=== PATIENT | female | born 1960 | race Caucasian/White ===

== ENCOUNTER 2016-08-22 13:33 | Inpatient (IN) | payer MEDICARE, MEDICAID ==
[2016-08-22] MEDS ORDERED: Morphine 2 MG/ML Syringe IVPUSH PRN (13:49)
[2016-08-22] MEDS: Sodium Chloride 0.9% 1,000 ML IV SCH (14:08)
[2016-08-22] MEDS ORDERED: Iopamidol 612 MG/ML 100 ML Bottle IV PRN (14:36)
[2016-08-22] MEDS ORDERED: Sodium Chloride 0.9% 10 ML Syringe FLUSH PRN (14:36)
[2016-08-22] MEDS ORDERED: Acetaminophen 325 MG Tab PO STA (15:01)
[2016-08-22] MEDS ORDERED: Pantoprazole 40 MG Vial IVPUSH ONE (16:34)
[2016-08-22] MEDS ORDERED: HYDROmorphone/Normal Saline 15 MG/30 ML PCA IV PRN (18:38)
[2016-08-22] MEDS ORDERED: Naloxone 0.4 MG/ML SDV IVPUSH PRN (18:38)
[2016-08-22] MEDS: Acetaminophen 325 MG Tab PO PRN (20:18)
[2016-08-22] MEDS: Metoclopramide 10 MG/2 ML SDV IV SCH (21:03)
[2016-08-22] MEDS: Ondansetron 4 MG/2 ML SDV IVPUSH PRN (21:03)
[2016-08-23] MEDS: Ondansetron 4 MG/2 ML SDV IVPUSH PRN ×2 (02:10→06:40)
[2016-08-23] MEDS: Metoclopramide 10 MG/2 ML SDV IV SCH ×4 (02:15→20:05)
[2016-08-23] MEDS ORDERED: Naloxone 0.4 MG/ML SDV IV PRN (07:23)
[2016-08-23] MEDS: Meperidine 300 MG/30 ML PCA Vial IV PRN (07:56)
[2016-08-23] MEDS ORDERED: Potassium Chloride 40 MEQ in Premix Bag 1 BAG IV ONE (08:45)
--- NOTE | 2016-08-23 08:55 | EDM.PDOC ---
ED HPI GENERAL MEDICAL PROBLEM - General Chief Complaint: General Stated Complaint: FEELS LIKE PASSING OUT, PALE Time Seen by Provider: 08/22/16 15:00 Source of Information: Reports: Patient, Family, RN notes reviewed History Limitations: Reports: No limitations - History of Present Illness INITIAL COMMENTS - FREE TEXT/NARRATIVE: 55-year-old female brought to the emergency room by family. Complaints of epigastric pain. Has had this intermittently since EGD accomplished by Fernando Laughlin in May with finding of large gastric bezoar. This a.m. had small amount to eat and noticed immediate epigastric pain with nausea but no vomiting. [place] like passing out. Took a shower with no relief of symptoms and continues to describe the gastric pain without radiation. Denies fever, sweats , or chills. Notes no diarrhea. Appetite has been decreased since finding in May. Weight reportedly stable. Alcohol none Middle Abdomen Pain Score (Numeric/FACES): 4 - Related Data Allergies Allergy/AdvReac Type Severity Reaction Status Date / Time metaxalone Allergy Cannot Verified 08/22/16 13:43 Remember ether AdvReac Nausea Verified 08/22/16 13:43 metronidazole AdvReac Tachycardia Verified 08/22/16 13:43 Home Meds: Home Meds Levothyroxine [Synthroid] 50 mcg PO DAILY 09/28/13 [History] Aspirin [Adult Low Dose Aspirin EC] 81 mg PO DAILY 01/24/14 [History] Cyanocobalamin (Vitamin B-12) [B-12] 500 mg PO DAILY 01/24/14 [History] Montelukast Sodium 10 mg PO BEDTIME 01/24/14 [History] Biotin 5,000 mcg PO DAILY 06/18/14 [History] Esomeprazole [NexIUM] 40 mg PO ACBREAKFAST 08/08/15 [History] Fluticasone Propionate [Flonase] 2 spray NS DAILY 08/08/15 [History] Losartan [Cozaar] 100 mg PO DAILY 03/27/16 [History] Cyclobenzaprine [Flexeril] 10 mg PO TID PRN 06/15/16 [History] Hydrochlorothiazide 25 mg PO DAILY 06/15/16 [History] Metoprolol Succinate [Toprol XL] 50 mg PO DAILY 06/15/16 [History] Pyridoxine HCl [Vitamin B-6] 100 mg PO DAILY 06/15/16 [History] [place]-3/DHA/Epa/Fish Oil [Fish Oil 500 mg Softgel] 1,200 mg PO DAILY 06/17/16 [ History] Past Medical History HEENT History: Reports: Impaired vision Cardiovascular History: Reports: Hypertension Gastrointestinal History: Reports: Bowel obstruction, GERD, Hiatal hernia Genitourinary History: Reports: UTI, recurrent 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: 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, Musculoskeletal History: Reports: Back pain, chronic Neurological History: Reports: None Psychiatric History: Reports: Anxiety Endocrine/Metabolic History: Reports: Hypothyroidism Dermatologic History: Reports: None - Infectious Disease History Infectious Disease History: Reports: None - Past Surgical History Head Surgeries/Procedures: Reports: None HEENT Surgical History: Reports: None Cardiovascular Surgical History: Reports: None GI Surgical History: Reports: Colonoscopy, EGD, Zeb fundoplication Female Surgical History: Reports: Hysterectomy, Oophorectomy, Tubal ligation Endocrine Surgical History: Reports: Thyroidectomy Other Endocrine Surgeries/Procedures: partial Neurological Surgical History: Reports: Spinal fusion, Other (see below) Other Neurological Surgeries/Procedures: L4-5 L5-S1 fusion Musculoskeletal Surgical History: Reports: Carpal tunnel Dermatological Surgical History: Reports: Other (see below) Social & Family History - Family History Family Medical History: Noncontributory : Reports: None Musculoskeletal: Reports: None - Tobacco Use Smoking Status *Q: Never Smoker Used Tobacco, but Quit: Yes Month Tobacco Last Used: 06/1984 Second Hand Smoke Exposure: No - Caffeine Use Caffeine Use: Reports: Coffee - Alcohol Use Days Per Week of Alcohol Use: 1 Number of Drinks Per Day: 0 Total Drinks Per Week: 0 - Recreational Drug Use Recreational Drug Use: No ED ROS GENERAL - Review of Systems Review Of Systems: See Below Constitutional: Reports: diaphoresis, other (near syncope) HEENT: Reports: No symptoms Respiratory: Reports: no symptoms Cardiovascular: Reports: No symptoms Endocrine: Reports: no symptoms GI/Abdominal: Reports: Abdominal pain, Anorexia : Reports: no symptoms Musculoskeletal: Reports: no symptoms Skin: Reports: pallor Neurological: Reports: no symptoms Psychiatric: Reports: No symptoms Hematologic/Lymphatic: Reports: no symptoms Immunologic: Reports: no symptoms ED EXAM, GENERAL - Physical Exam Exam: See Below Exam Limited By: No limitations General Appearance: alert, WD/WN, anxious Eye Exam: bilateral eye: EOMI, normal inspection Ears: normal external exam, normal canal, hearing grossly normal, normal TMs Nose: normal inspection Throat/Mouth: Normal inspection, Normal lips, Normal gums, Normal oropharynx, Normal voice, No airway compromise Head: atraumatic, normocephalic Neck: normal inspection, supple, non-tender, full range of motion Respiratory/Chest: no respiratory distress, lungs clear, normal breath sounds Cardiovascular: regular rate, rhythm Peripheral Pulses: 1+: radial (L), radial (R), 2+: carotid (L), carotid (R) GI/Abdominal: no organomegaly, no mass, tender (epigastric area) Back Exam: normal inspection Extremities: normal inspection Neurological: alert, oriented, CN II-XII intact, normal cognition Skin Exam: Dry, Pallor Lymphatic: no adenopathy Course - Vital Signs Text/Narrative:: Patient treated with normal saline fluid rehydration Reviewed CT scan abdomen and pelvis which showed a hemangioma in liver with fluid filled bowel but no evidence of obstruction. No evidence of free air on flat and upright abdomen. Lab with normal cbc, lipase, renal function, and liver function but slightly low calcium. given protonix iv continues with epigastric pain and feels like she wants to pass out. Discussed with Dr. Laughlin in surgery and question whether we have gastric outlet obstruction. Will admit to Dr. Laughlin's service Last Recorded V/S: Last Vital Signs Temp 98.6 F 08/23/16 07:51 Pulse 70 08/23/16 07:51 Resp 18 08/23/16 07:51 BP 111/71 08/23/16 07:51 Pulse Ox 95 08/23/16 07:51 - Orders/Labs/Meds Orders: Active Orders 24 hr Category Date Time Status Abdomen 2V AP Flat Upright [CR] Urgent Exams 08/22/16 13:47 Taken Abdomen Comp [US] Stat Exams 08/22/16 17:00 Taken Abdomen Pelvis w Cont [CT] Urgent Exams 08/22/16 13:48 Taken CULTURE BLOOD [BC] Stat Lab 08/22/16 15:10 Received CULTURE BLOOD [BC] Stat Lab 08/22/16 15:20 Received CULTURE URINE [RM] Stat Lab 08/22/16 15:47 Received Iopamidol [Isovue-300 (61%)] Med 08/22/16 14:36 Active 100 ml IV . DIRECTED PRN Morphine Med 08/22/16 13:49 Active 1 mg IVPUSH Q1H PRN Sodium Chloride 0.9% [Normal Saline] 1,000 ml Med 08/22/16 14:00 Active IV ASDIRECTED Sodium Chloride 0.9% [Saline Flush] Med 08/22/16 14:36 Active 10 ml FLUSH ONETIME PRN Medication Orders Acetaminophen (Tylenol) 650 mg PO Q4H PRN PRN Reason: fever/pain Last Admin: 08/22/16 20:18 Dose: 650 mg Sodium Chloride (Normal Saline) 1,000 mls @ 150 mls/hr IV ASDIRECTED LUC Last Admin: 08/22/16 14:08 Dose: 150 mls/hr Calcium Gluconate 2 gm/ Sodium (Chloride) 120 mls @ 100 mls/hr IV ONETIME ONE Stop: 08/23/16 09:55 Magnesium Sulfate 2 gm/ Premix 50 mls @ 25 mls/hr IV ONETIME ONE Stop: 08/23/16 10:59 Potassium Chloride 40 meq/ (Premix) 100 mls @ 25 mls/hr IV ONETIME ONE Stop: 08/23/16 12:44 Iopamidol (Isovue-300 (61%)) 100 ml IV . DIRECTED PRN PRN Reason: RADIOLOGY EXAM Stop: 08/23/16 14:37 Last Admin: 08/22/16 14:44 Dose: 100 ml Meperidine HCl (Demerol [employer] Principal 300 Mg In 30 Ml) 0 mg IV ASDIRECTED PRN; Protocol PRN Reason: PAIN Last Admin: 08/23/16 07:56 Dose: 300 mg Metoclopramide HCl (Reglan) 10 mg IV Q6H [facility] Last Admin: 08/23/16 08:40 Dose: 10 mg Admin: 08/23/16 02:15 Dose: 10 mg Admin: 08/22/16 21:03 Dose: 10 mg Morphine Sulfate (Morphine) 1 mg IVPUSH Q1H PRN PRN Reason: Pain Naloxone HCl (Narcan) 0.1 mg IV ASDIRECTED PRN PRN Reason: RESP Ondansetron HCl (Zofran) 4 mg IVPUSH Q4H PRN PRN Reason: Nausea/Vomiting Last Admin: 08/23/16 06:40 Dose: 4 mg Admin: 03/06/17 02:10 Dose: 4 mg Admin: 08/22/16 21:03 Dose: 4 mg Sodium Chloride (Saline Flush) 10 ml FLUSH ONETIME PRN PRN Reason: per radiology protocol Last Admin: 08/22/16 14:44 Dose: 10 ml Labs: Laboratory Tests 08/22/16 08/22/16 08/22/16 Range/Units 13:59 13:59 13:59 WBC 6.3 (4.5-11.0) K/uL RBC 4.76 (3.30-5.50) M/uL Hgb 13.4 (12.0-15.0) g/dL Hct 40.5 (36.0-48.0) % MCV 85 (80-98) fL MCH 28 (27-31) pg MCHC 33 (32-36) % Plt Count 186 (150-400) K/uL Neut % (Auto) 85 H (36-66) % Lymph % (Auto) 10 L (24-44) % [place] % (Auto) 4 (2-6) % Eos % (Auto) 1 L (2-4) % Baso % (Auto) 0 (0-1) % Sodium 139 L (140-148) mmol/L Potassium 4.2 (3.6-5.2) mmol/L Chloride 103 (100-108) mmol/L Carbon Dioxide 26 (21-32) mmol/L Anion Gap 14.2 H (5.0-14.0) mmol/L BUN 24 H (7-18) mg/dL Creatinine 1.1 H (0.6-1.0) mg/dL Est Cr Clr Drug Dosing 42.58 mL/min Estimated GFR (MDRD) 51 L (>60) Glucose 135 H (74-106) mg/dL Lactic Acid 1.8 (0.4-2.0) mmol/L Calcium 8.1 L (8.5-10.1) mg/dL Total Bilirubin 0.5 D (0.2-1.0) mg/dL AST 33 (15-37) U/L ALT 35 (12-78) U/L Alkaline Phosphatase 63 (46-116) U/L Troponin I < 0.017 (0.000-0.056) ng/mL Total Protein 7.3 (6.4-8.2) g/dL Albumin 3.8 (3.4-5.0) g/dL Globulin 3.5 (2.3-3.5) g/dL Albumin/Globulin Ratio 1.1 L (1.2-2.2) Amylase 38 (25-115) U/L Lipase 159 (73-393) U/L Urine Color Urine Appearance Urine pH (4.5-8.0) Ur Specific [place] (1.008-1.030) Urine Protein (NEGATIVE) mg/dL Urine Glucose (UA) (NEGATIVE) mg/dL Urine Ketones (NEGATIVE) mg/dL Urine Occult Blood (NEGATIVE) Urine Nitrite (NEGATIVE) Urine Bilirubin (NEGATIVE) Urine Urobilinogen (NORMAL) mg/dL Ur Leukocyte Esterase (NEGATIVE) Urine RBC (0-5) Urine WBC (0-5) Ur Epithelial Cells Amorphous Sediment Urine Bacteria Urine Mucus Urine Other 08/22/16 Range/Units 15:47 WBC (4.5-11.0) K/uL RBC (3.30-5.50) M/uL Hgb (12.0-15.0) g/dL Hct (36.0-48.0) % MCV (80-98) fL MCH (27-31) pg MCHC (32-36) % Plt Count (150-400) K/uL Neut % (Auto) (36-66) % Lymph % (Auto) (24-44) % [place] % (Auto) (2-6) % Eos % (Auto) (2-4) % Baso % (Auto) (0-1) % Sodium (140-148) mmol/L Potassium (3.6-5.2) mmol/L Chloride (100-108) mmol/L Carbon Dioxide (21-32) mmol/L Anion Gap (5.0-14.0) mmol/L BUN (7-18) mg/dL Creatinine (0.6-1.0) mg/dL Est Cr Clr Drug Dosing mL/min Estimated GFR (MDRD) (>60) Glucose (74-106) mg/dL Lactic Acid (0.4-2.0) mmol/L Calcium (8.5-10.1) mg/dL Total Bilirubin (0.2-1.0) mg/dL AST (15-37) U/L ALT (12-78) U/L Alkaline Phosphatase (46-116) U/L Troponin I (0.000-0.056) ng/mL Total Protein (6.4-8.2) g/dL Albumin (3.4-5.0) g/dL Globulin (2.3-3.5) g/dL Albumin/Globulin Ratio (1.2-2.2) Amylase (25-115) U/L Lipase (73-393) U/L Urine Color Yellow Urine Appearance Slightly cloudy Urine pH 5.0 (4.5-8.0) Ur Specific [place] 1.015 (1.008-1.030) Urine Protein Negative (NEGATIVE) mg/dL Urine Glucose (UA) Normal (NEGATIVE) mg/dL Urine Ketones Negative (NEGATIVE) mg/dL Urine Occult Blood Negative (NEGATIVE) Urine Nitrite Negative (NEGATIVE) Urine Bilirubin Negative (NEGATIVE) Urine Urobilinogen Normal (NORMAL) mg/dL Ur Leukocyte Esterase Small (NEGATIVE) Urine RBC Not seen (0-5) Urine WBC 5-10 H (0-5) Ur Epithelial Cells Few Amorphous Sediment Not seen Urine Bacteria Many Urine Mucus Few Urine Other Meds: Medications Generic Name Dose Route Start Last Admin Trade Name Freq PRN Reason Stop Dose Admin Acetaminophen 650 mg 08/22/16 19:48 08/22/16 20:18 Tylenol PO 650 mg Q4H PRN Administration fever/pain Sodium Chloride 1,000 mls @ 150 mls/hr 08/22/16 14:00 08/22/16 14:08 Normal Saline IV 150 mls/hr ASDIRECTED LUC Administration Calcium Gluconate 2 gm/ Sodium 120 mls @ 100 mls/hr 08/23/16 08:44 Chloride IV 08/23/16 09:55 ONETIME ONE Magnesium Sulfate 2 gm/ Premix 50 mls @ 25 mls/hr 08/23/16 09:00 IV 08/23/16 10:59 ONETIME ONE Potassium Chloride 40 meq/ 100 mls @ 25 mls/hr 08/23/16 08:45 Premix IV 08/23/16 12:44 ONETIME ONE Iopamidol 100 ml 08/22/16 14:36 08/22/16 14:44 Isovue-300 (61%) IV 08/23/16 14:37 100 ml . DIRECTED PRN Administration RADIOLOGY EXAM Meperidine HCl 0 mg 08/23/16 07:23 08/23/16 07:56 Demerol [employer] 300 Mg In 30 Ml IV 300 mg ASDIRECTED PRN Administration PAIN Protocol Metoclopramide HCl 10 mg 08/22/16 20:30 08/23/16 08:40 Reglan IV 10 mg Q6H LUC Administration Morphine Sulfate 1 mg 08/22/16 13:49 Morphine IVPUSH Q1H PRN Pain Naloxone HCl 0.1 mg 08/23/16 07:23 Narcan IV ASDIRECTED PRN RESP Ondansetron HCl 4 mg 08/22/16 20:20 08/23/16 06:40 Zofran IVPUSH 4 mg Q4H PRN Administration Nausea/Vomiting Sodium Chloride 10 ml 08/22/16 14:36 08/22/16 14:44 Saline Flush FLUSH 10 ml ONETIME PRN Administration per radiology protocol Discontinued Medications Generic Name Dose Route Start Last Admin Trade Name Freq PRN Reason Stop Dose Admin Acetaminophen 650 mg 08/22/16 15:01 08/22/16 15:04 Tylenol PO 08/22/16 15:02 650 mg NOW STA Administration Hydromorphone HCl 0 mg 08/22/16 18:38 08/22/16 19:20 Dilaudid [employer] 15 Mg In Ns 30 Ml IV 15 mg ASDIRECTED PRN Administration Pain Protocol Sodium Chloride 70 mls @ 3 mls/sec 08/22/16 14:45 08/22/16 14:44 Normal Saline IV 3 mls/sec ASDIRECTED LUC Administration Pantoprazole Sodium 40 mg 08/22/16 16:34 08/22/16 16:41 Protonix Iv IVPUSH 08/22/16 16:35 40 mg ONETIME ONE Administration Departure - Departure Time of Disposition: 09:04 Disposition: [facility] Condition: fair Clinical Impression: Epigastric pain - My Orders Last 24 Hours: My Active Orders 08/22/16 13:47 Abdomen 2V AP Flat Upright [CR] Urgent 08/22/16 13:48 Abdomen Pelvis w Cont [CT] Urgent 08/22/16 13:49 Morphine 1 mg IVPUSH Q1H PRN 08/22/16 14:00 Sodium Chloride 0.9% [Normal Saline] 1,000 ml IV ASDIRECTED 08/22/16 14:36 Iopamidol [Isovue-300 (61%)] 100 ml IV . DIRECTED PRN Sodium Chloride 0.9% [Saline Flush] 10 ml FLUSH ONETIME PRN 08/22/16 15:10 CULTURE BLOOD [BC] Stat 08/22/16 15:20 CULTURE BLOOD [BC] Stat 08/22/16 15:47 CULTURE URINE [RM] Stat 08/22/16 17:00 Abdomen Comp [US] Stat - Assessment/Plan Last 24 Hours: My Active Orders 08/22/16 13:47 Abdomen 2V AP Flat Upright [CR] Urgent 08/22/16 13:48 Abdomen Pelvis w Cont [CT] Urgent 08/22/16 13:49 Morphine 1 mg IVPUSH Q1H PRN 08/22/16 14:00 Sodium Chloride 0.9% [Normal Saline] 1,000 ml IV ASDIRECTED 08/22/16 14:36 Iopamidol [Isovue-300 (61%)] 100 ml IV . DIRECTED PRN Sodium Chloride 0.9% [Saline Flush] 10 ml FLUSH ONETIME PRN 08/22/16 15:10 CULTURE BLOOD [BC] Stat 08/22/16 15:20 CULTURE BLOOD [BC] Stat 08/22/16 15:47 CULTURE URINE [RM] Stat 08/22/16 17:00 Abdomen Comp [US] Stat
[2016-08-23] MEDS ORDERED: Magnesium Sulfate/Water 2 GM in Premix Bag 1 BAG IV ONE (09:00)
--- NOTE | 2016-08-23 09:04 | PCM.HP ---
H&P History of Present Illness - General Date of Service: 08/23/16 Source of Information: Patient History Limitations: Reports: No limitations - History of Present Illness Initial Comments - Free Text/Narative: Rosalva states she had sudden onset of mid epigastric abdominal pain that started yesterday morning while she was eating a "wrap from the DQ". She said she ate about 1/2 of it and had to stop eating. No associated signs and symptoms. She took a hot shower thinking that would help but she states the pain was so severe she almost passed out. There was no radiation of pain but does state she feels like her right upper back needs to be supported by pillows. Last BM was either 08/16 or 08/17/16. Normally she has BMS every 4 days. Has had similar episodes like this before but not as severe. She reports having a bezoar diagnosed by an EGD done by Kanu Laughlin MD in May,. Location: Reports: abdomen (mid epigastric ) Quality: Reports: Pressure, Stabbing, Throbbing Improves with: Reports: Medication Context: Reports: sick contact Associated Symptoms: Reports: other (nausea but no vomiting) Middle Abdomen Pain Score (Numeric/FACES): 4 - Related Data Allergies/Adverse Reactions: Allergies Allergy/AdvReac Type Severity Reaction Status Date / Time metaxalone Allergy Cannot Verified 08/22/16 13:43 Remember ether AdvReac Nausea Verified 08/22/16 13:43 metronidazole AdvReac Tachycardia Verified 08/22/16 13:43 Home Medications: Home Meds Levothyroxine [Synthroid] 50 mcg PO DAILY 09/28/13 [History] Aspirin [Adult Low Dose Aspirin EC] 81 mg PO DAILY 01/24/14 [History] Cyanocobalamin (Vitamin B-12) [B-12] 500 mg PO DAILY 01/24/14 [History] Montelukast Sodium 10 mg PO BEDTIME 01/24/14 [History] Biotin 5,000 mcg PO DAILY 06/18/14 [History] Esomeprazole [NexIUM] 40 mg PO ACBREAKFAST 08/08/15 [History] Fluticasone Propionate [Flonase] 2 spray NS DAILY 08/08/15 [History] Losartan [Cozaar] 100 mg PO DAILY 03/27/16 [History] Cyclobenzaprine [Flexeril] 10 mg PO TID PRN 06/15/16 [History] Hydrochlorothiazide 25 mg PO DAILY 06/15/16 [History] Metoprolol Succinate [Toprol XL] 50 mg PO DAILY 06/15/16 [History] Pyridoxine HCl [Vitamin B-6] 100 mg PO DAILY 06/15/16 [History] [place]-3/DHA/Epa/Fish Oil [Fish Oil 500 mg Softgel] 1,200 mg PO DAILY 06/17/16 [ History] Past Medical History HEENT History: Reports: Impaired vision Cardiovascular History: Reports: Hypertension Gastrointestinal History: Reports: Bowel obstruction, GERD, Hiatal hernia Genitourinary History: Reports: UTI, recurrent 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, Musculoskeletal History: Reports: Back pain, chronic Neurological History: Reports: None Psychiatric History: Reports: Anxiety Endocrine/Metabolic History: Reports: Hypothyroidism Dermatologic History: Reports: None - Infectious Disease History Infectious Disease History: Reports: None - Past Surgical History Head Surgeries/Procedures: Reports: None HEENT Surgical History: Reports: None Cardiovascular Surgical History: Reports: None GI Surgical History: Reports: Colonoscopy, EGD, Zeb fundoplication Female Surgical History: Reports: Hysterectomy, Oophorectomy, Tubal ligation Endocrine Surgical History: Reports: Thyroidectomy Other Endocrine Surgeries/Procedures: partial Neurological Surgical History: Reports: Spinal fusion, Other (see below) Other Neurological Surgeries/Procedures: L4-5 L5-S1 fusion Musculoskeletal Surgical History: Reports: Carpal tunnel Dermatological Surgical History: Reports: Other (see below) Social & Family History - Family History Family Medical History: Noncontributory : Reports: None Musculoskeletal: Reports: None - Tobacco Use Smoking Status *Q: Never Smoker Used Tobacco, but Quit: Yes Month Tobacco Last Used: 06/1984 Second Hand Smoke Exposure: No - Caffeine Use Caffeine Use: Reports: Coffee - Alcohol Use Days Per Week of Alcohol Use: 1 Number of Drinks Per Day: 0 Total Drinks Per Week: 0 - Recreational Drug Use Recreational Drug Use: No H&P Review of Systems - Review of Systems: Review Of Systems: See Below General: Reports: fever, weakness, fatigue HEENT: Reports: no symptoms Pulmonary: Reports: no symptoms Cardiovascular: Reports: no symptoms Gastrointestinal: Reports: Abdominal pain, Constipation, Nausea Genitourinary: Reports: no symptoms Musculoskeletal: Reports: no symptoms, back pain (right upper.) Skin: Reports: no symptoms Psychiatric: Reports: no symptoms Neurological: Reports: no symptoms Hematologic/Lymphatic: Reports: no symptoms Immunologic: Reports: no symptoms Exam - Exam Exam: See Below - Vital Signs Vital Signs: Last Vital Signs Temp 98.6 F 08/23/16 07:51 Pulse 70 08/23/16 07:51 Resp 18 08/23/16 07:51 BP 111/71 08/23/16 07:51 Pulse Ox 95 08/23/16 07:51 Weight: 158 lb 11.2 oz - Exam Quality Assessment: DVT prophylaxis General: alert, oriented, moderate distress HEENT: PERRLA, Conjunctiva clear Neck: supple, trachea midline Lungs: Clear to auscultation, Normal respiratory effort Cardiovascular: regular rate, regular rhythm Abdomen: guarding, tenderness (in mid epigastric area ) (Female) Exam: Deferred Rectal (Female) Exam: Deferred Back Exam: normal inspection, full range of motion Extremities: normal inspection Skin: warm, dry, intact Neurological: cranial nerves intact, reflexes equal bilateral Neuro Extensive - Mental Status: alert, oriented x3, normal mood/affect Neuro Extensive - Motor, Sensory, Reflexes: CN II-XII intact, normal gait, normal reflexes Psychiatric: alert, normal affect, normal mood - Patient Data Lab Results last 24 hrs: Laboratory Results - last 24 hr 08/23/16 08/23/16 08/23/16 Range/Units 07:08 07:08 07:08 WBC 4.4 L (4.5-11.0) K/uL RBC 3.96 (3.30-5.50) M/uL Hgb 11.3 L D (12.0-15.0) g/dL Hct 34.0 L (36.0-48.0) % MCV 86 (80-98) fL MCH 29 (27-31) pg MCHC 33 (32-36) % Plt Count 160 (150-400) K/uL Sodium 141 (140-148) mmol/L Potassium 3.4 L (3.6-5.2) mmol/L Chloride 107 (100-108) mmol/L Carbon Dioxide 26 (21-32) mmol/L Anion Gap 11.4 (5.0-14.0) mmol/L BUN 22 H (7-18) mg/dL Creatinine 0.8 (0.6-1.0) mg/dL Est Cr Clr Drug Dosing 58.55 mL/min Estimated GFR (MDRD) > 60 (>60) Glucose 131 H (74-106) mg/dL Calcium 6.9 L* (8.5-10.1) mg/dL Phosphorus 3.3 (2.5-4.9) mg/dL Magnesium 1.5 L (1.8-2.4) mg/dL Total Bilirubin 0.6 (0.2-1.0) mg/dL AST 34 (15-37) U/L ALT 34 (12-78) U/L Alkaline Phosphatase 45 L (46-116) U/L Total Protein 5.9 L (6.4-8.2) g/dL Albumin 2.9 L (3.4-5.0) g/dL Globulin 3.0 (2.3-3.5) g/dL Albumin/Globulin Ratio 1.0 L (1.2-2.2) Amylase (25-115) U/L Lipase (73-393) U/L 08/23/16 Range/Units 07:08 WBC (4.5-11.0) K/uL RBC (3.30-5.50) M/uL Hgb (12.0-15.0) g/dL Hct (36.0-48.0) % MCV (80-98) fL MCH (27-31) pg MCHC (32-36) % Plt Count (150-400) K/uL Sodium (140-148) mmol/L Potassium (3.6-5.2) mmol/L Chloride (100-108) mmol/L Carbon Dioxide (21-32) mmol/L Anion Gap (5.0-14.0) mmol/L BUN (7-18) mg/dL Creatinine (0.6-1.0) mg/dL Est Cr Clr Drug Dosing mL/min Estimated GFR (MDRD) (>60) Glucose (74-106) mg/dL Calcium (8.5-10.1) mg/dL Phosphorus (2.5-4.9) mg/dL Magnesium (1.8-2.4) mg/dL Total Bilirubin (0.2-1.0) mg/dL AST (15-37) U/L ALT (12-78) U/L Alkaline Phosphatase (46-116) U/L Total Protein (6.4-8.2) g/dL Albumin (3.4-5.0) g/dL Globulin (2.3-3.5) g/dL Albumin/Globulin Ratio (1.2-2.2) Amylase 19 L (25-115) U/L Lipase 69 L (73-393) U/L Result Diagrams: 08/23/16 07:08 08/23/16 07:08 *Q Meaningful Use (ADM) - VTE *Q VTE Criteria *Q: - Stroke *Q Stroke Criteria *Q: - AMI *Q AMI Criteria *Q: Problem List Initiated/Reviewed/Updated: Yes Orders Last 24hrs: Active Orders 24 hr Category Date Time Status Communication Order [RC] ROUTINE Care 08/23/16 07:41 Active Communication Order [RC] STAT Care 08/22/16 18:38 Active Notify Provider Consults [RC] ASDIRECTED Care 08/23/16 07:41 Active Notify Provider [RC] PRN Care 08/22/16 18:38 Active DIGITAL DATA ANALYST Record [RC] PER UNIT ROUTINE Care 08/22/16 18:38 Active Pulse Oximetry [RC] CONTINUOUS Care 08/22/16 18:38 Active Consult to Physician [CONS] Routine Cons 08/23/16 07:40 Ordered CALCIUM IONIZED,ISTAT [POC] Stat Lab 08/23/16 08:44 Uncollected Acetaminophen [Tylenol] Med 08/22/16 19:48 Active 650 mg PO Q4H PRN Calcium Gluconate 2 gm Med 08/23/16 08:44 Ordered Sodium Chloride 0.9% [Normal Saline] 100 ml IV ONETIME Magnesium Sulfate/Water [Magnesium Sulfate 2 GM in Med 08/23/16 09:00 Active Water 50 ML] 2 gm Premix Bag 1 bag IV ONETIME Meperidine [Demerol DIGITAL DATA ANALYST 300 MG in 30 ML] Med 08/23/16 07:23 Active 0 mg IV ASDIRECTED PRN Metoclopramide [Reglan] Med 08/22/16 20:30 Active 10 mg IV Q6H Naloxone [Narcan] Med 08/23/16 07:23 Active 0.1 mg IV ASDIRECTED PRN Ondansetron [Zofran] Med 08/22/16 20:20 Active 4 mg IVPUSH Q4H PRN Potassium Chloride 20 meq Med 08/23/16 10:00 Active Lidocaine 1% [Xylocaine 1%] 2 ml Sodium Chloride 0.9% [Normal Saline] 100 ml IV Q2H Medication Discontinuation Instructions [OM.PC] Stat Oth 08/22/16 18:38 Ordered Medication Orders Acetaminophen (Tylenol) 650 mg PO Q4H PRN PRN Reason: fever/pain Last Admin: 08/22/16 20:18 Dose: 650 mg Sodium Chloride (Normal Saline) 1,000 mls @ 150 mls/hr IV ASDIRECTED [facility] Last Admin: 08/22/16 14:08 Dose: 150 mls/hr Calcium Gluconate 2 gm/ Sodium (Chloride) 120 mls @ 100 mls/hr IV ONETIME ONE Stop: 08/23/16 10:41 Magnesium Sulfate 2 gm/ Premix 50 mls @ 25 mls/hr IV ONETIME ONE Stop: 08/23/16 10:59 Potassium Chloride 20 meq/Lidocaine HCl 2 ml/ Sodium Chloride 112 mls @ 56 mls/ hr IV Q2H [facility] Stop: 08/23/16 13:59 Iopamidol (Isovue-300 (61%)) 100 ml IV . DIRECTED PRN PRN Reason: RADIOLOGY EXAM Stop: 08/23/16 14:37 Last Admin: 08/22/16 14:44 Dose: 100 ml Meperidine HCl (Demerol Medical Numerical Control Operator 300 Mg In 30 Ml) 0 mg IV ASDIRECTED PRN; Protocol PRN Reason: PAIN Last Admin: 08/23/16 07:56 Dose: 300 mg Metoclopramide HCl (Reglan) 10 mg IV Q6H [facility] Last Admin: 08/23/16 08:40 Dose: 10 mg Admin: 08/23/16 02:15 Dose: 10 mg Admin: 08/22/16 21:03 Dose: 10 mg Morphine Sulfate (Morphine) 1 mg IVPUSH Q1H PRN PRN Reason: Pain Naloxone HCl (Narcan) 0.1 mg IV ASDIRECTED PRN PRN Reason: RESP Ondansetron HCl (Zofran) 4 mg IVPUSH Q4H PRN PRN Reason: Nausea/Vomiting Last Admin: 08/23/16 06:40 Dose: 4 mg Admin: 08/23/16 02:10 Dose: 4 mg Admin: 08/22/16 21:03 Dose: 4 mg Sodium Chloride (Saline Flush) 10 ml FLUSH ONETIME PRN PRN Reason: per radiology protocol Last Admin: 08/22/16 14:44 Dose: 10 ml Assessment/Plan Comment:: Assessment: Fever of unknown etiology Mid Epigastric Pain Plan: Admit to Inpatient Status EGD today - IV Sedation - Kanu Laughlin MD Consult with Red Espino MD Plan of Hospitalization: 3 nights and 3 days pending results of diagnostic testing. Adilene RUGGIERO C
[2016-08-23] MEDS ORDERED: Calcium Gluconate 2 GM in Sodium Chloride 0.9% 100 ML IV ONE (09:30)
[2016-08-23] MEDS: Potassium Chloride 20 MEQ, Lidocaine 1% 2 ML in Sodium Chloride 0.9% 100 ML IV SCH ×2 (10:37→13:33)
--- NOTE | 2016-08-23 11:37 | CR ---
2 view abdomen There is a lack of formed stool within the colon. There are a few scattered air-fluid levels within large and small bowel. There is an air-fluid level within the stomach. There is no free air. Impression: 1. Nonspecific bowel gas pattern. The finding may reflect a enteritis or mild ileus. Clinical correl ation recommended.
[2016-08-23] MEDS ORDERED: fentaNYL 100 MCG/2 ML SDV ONE (12:38)
[2016-08-23] MEDS ORDERED: Midazolam 1 MG/ML 2 ML SDV ONE (12:39)
[2016-08-23] MEDS ORDERED: Propofol 200 MG/20 ML SDV ONE (12:39)
[2016-08-23] MEDS: Acetaminophen 325 MG Tab PO PRN (15:08)
[2016-08-23] MEDS: Magnesium Sulfate/Water 2 GM in Premix Bag 1 BAG IV SCH ×2 (15:08→20:05)
--- NOTE | 2016-08-23 17:43 | PCM.CONS ---
H&P History of Present Illness - General Date of Service: 08/23/16 Admit Problem/Dx: Admission Diagnosis/Problem Admission Diagnosis/Problem Epigastric pain Source of Information: Patient, Old records, Provider, RN notes reviewed History Limitations: Reports: No limitations - History of Present Illness Initial Comments - Free Text/Narative: This patient is a 55-year-old woman who I been asked to see by Dr. Laughlin for further suggestions concerning evaluation and management of fever and abdominal pain. She reports that she's not felt well over the past 2 months, often shortly after eating she developed some bloating sensation with nausea. Symptoms can last several hours and she thinks that it may be more severe when she eats fatty foods. She's been seen and evaluated by Dr. Laughlin, previous EGD did show evidence of a bezoar. Symptoms persisted until yesterday morning when she was eating and developed severe epigastric pain associated with nausea and vomiting. CT scan was obtained in the emergency department and showed no acute abnormalities. In the emergency department was noted to have a fever but also had a normal white blood cell count which has remained normal on followup. EGD performed today showed no persistent bezoar or other significant abnormality to explain her current symptoms. Middle Abdomen Pain Score (Numeric/FACES): 4 - Related Data Allergies/Adverse Reactions: Allergies Allergy/AdvReac Type Severity Reaction Status Date / Time metaxalone Allergy Cannot Verified 08/22/16 13:43 Remember ether AdvReac Nausea Verified 08/22/16 13:43 metronidazole AdvReac Tachycardia Verified 08/22/16 13:43 Home Medications: Home Meds Levothyroxine [Synthroid] 50 mcg PO DAILY 09/28/13 [History] Aspirin [Adult Low Dose Aspirin EC] 81 mg PO DAILY 01/24/14 [History] Cyanocobalamin (Vitamin B-12) [B-12] 500 mg PO DAILY 01/24/14 [History] Montelukast Sodium 10 mg PO BEDTIME 01/24/14 [History] Biotin 5,000 mcg PO DAILY 06/18/14 [History] Esomeprazole [NexIUM] 40 mg PO ACBREAKFAST 08/08/15 [History] Fluticasone Propionate [Flonase] 2 spray NS DAILY 08/08/15 [History] Losartan [Cozaar] 100 mg PO DAILY 03/27/16 [History] Cyclobenzaprine [Flexeril] 10 mg PO TID PRN 06/15/16 [History] Hydrochlorothiazide 25 mg PO DAILY 06/15/16 [History] Metoprolol Succinate [Toprol XL] 50 mg PO DAILY 06/15/16 [History] Pyridoxine HCl [Vitamin B-6] 100 mg PO DAILY 06/15/16 [History] [place]-3/DHA/Epa/Fish Oil [Fish Oil 500 mg Softgel] 1,200 mg PO DAILY 06/17/16 [ History] Past Medical History HEENT History: Reports: Impaired vision Cardiovascular History: Reports: Hypertension Gastrointestinal History: Reports: Bowel obstruction, GERD, Hiatal hernia Genitourinary History: Reports: UTI, recurrent 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: 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, Musculoskeletal History: Reports: Back pain, chronic Neurological History: Reports: None Psychiatric History: Reports: Anxiety Endocrine/Metabolic History: Reports: Hypothyroidism Dermatologic History: Reports: None - Infectious Disease History Infectious Disease History: Reports: None - Past Surgical History Head Surgeries/Procedures: Reports: None HEENT Surgical History: Reports: None Cardiovascular Surgical History: Reports: None GI Surgical History: Reports: Colonoscopy, EGD, Zeb fundoplication Female Surgical History: Reports: Hysterectomy, Oophorectomy, Tubal ligation Endocrine Surgical History: Reports: Thyroidectomy Other Endocrine Surgeries/Procedures: partial Neurological Surgical History: Reports: Spinal fusion, Other (see below) Other Neurological Surgeries/Procedures: L4-5 L5-S1 fusion Musculoskeletal Surgical History: Reports: Carpal tunnel Dermatological Surgical History: Reports: Other (see below) Social & Family History - Family History Family Medical History: Noncontributory : Reports: None Musculoskeletal: Reports: None - Tobacco Use Smoking Status *Q: Never Smoker Used Tobacco, but Quit: Yes Month Tobacco Last Used: 06/1984 Second Hand Smoke Exposure: No - Caffeine Use Caffeine Use: Reports: Coffee - Alcohol Use Days Per Week of Alcohol Use: 1 Number of Drinks Per Day: 0 Total Drinks Per Week: 0 - Recreational Drug Use Recreational Drug Use: No H&P Review of Systems - Review of Systems: Review Of Systems: See Below General: Reports: fever. Denies: chills, weakness, diaphoresis HEENT: Reports: no symptoms Pulmonary: Reports: no symptoms Cardiovascular: Reports: no symptoms Gastrointestinal: Reports: Abdominal pain, Distension, Nausea, Vomiting. Denies : Black stool, Bloody stool, Constipation, Diarrhea, Decreased appetite, Difficulty swallowing Genitourinary: Reports: no symptoms Musculoskeletal: Reports: no symptoms Skin: Reports: no symptoms Psychiatric: Reports: no symptoms Neurological: Reports: no symptoms Hematologic/Lymphatic: Reports: no symptoms Immunologic: Reports: no symptoms Exam - Exam Exam: See Below - Vital Signs Vital Signs: Last Vital Signs Temp 98.4 F 08/23/16 15:14 Pulse 79 08/23/16 15:14 Resp 18 08/23/16 15:14 BP 115/70 08/23/16 15:14 Pulse Ox 94 L 08/23/16 15:14 Weight: 158 lb 11.196 oz - Exam General: alert, oriented, cooperative, mild distress Neck: supple, trachea midline, +2 carotid pulse wo bruit Lungs: Clear to auscultation, Normal respiratory effort Cardiovascular: regular rate, regular rhythm, normal S1, normal S2. No: irregular rhythm, bradycardia, tachycardia, systolic murmur, diastolic murmur Abdomen: normal bowel sounds, soft, distention, tenderness. No: organomegaly, peritoneal signs, guarding, rigidity, rebound Back Exam: normal inspection, full range of motion, NT Extremities: 3, normal inspection, 10 Skin: warm, dry, intact - Patient Data Lab Results last 24 hrs: Laboratory Results - last 24 hr 08/23/16 Range/Units 09:00 POC WB Ioniz Calcium 0.98 L* (1.12-1.32) mmol/L Result Diagrams: 08/23/16 07:08 08/23/16 07:08 Consult PN Assessment/Plan Procedures: Procedures AG DETECT NOS IA MULT (09/28/13) ASSAY OF TROPONIN QUANT (03/27/16) ASSAY THYROID STIM HORMONE (03/27/16) COMP SCREEN MAMMOGRAM ADD-ON (05/26/16) COMPLETE CBC W/AUTO DIFF WBC (03/27/16) COMPREHEN METABOLIC PANEL (03/27/16) CT ABD & PELV W/CONTRAST (01/24/14) CULTURE SCREEN ONLY (06/17/16) DIAGNOSTIC COLONOSCOPY (06/19/14) EGD BIOPSY SINGLE/MULTIPLE (06/17/16) EGD REMOVE LESION SNARE (06/19/14) ELECTROCARDIOGRAM TRACING (03/27/16) EMERGENCY DEPT VISIT (03/27/16) EMERGENCY DEPT VISIT (09/28/13) EMERGENCY DEPT VISIT (09/28/13) HEP B SURFACE ANTIBODY (09/28/13) HEPATITIS C AB TEST (09/28/13) HEPATOBIL SYST IMAGE W/DRUG (01/25/14) INJECTION FOR HIP X-RAY (08/08/15) MANUAL THERAPY 1/> REGIONS (04/08/16) MRI JOINT OF LWR EXTR W/DYE (08/08/15) MRI LUMBAR SPINE W/O & W/DYE (07/26/14) PT EVALUATION (03/16/16) ROUTINE VENIPUNCTURE (03/27/16) THER/PROPH/DIAG INJ IV PUSH (03/27/16) THERAPEUTIC EXERCISES (04/08/16) TX/PRO/DX INJ SAME DRUG DEPUTY SHERIFF BAILIFF (03/27/16) ULTRASOUND THERAPY (07/30/15) UPR/L XTREMITY ART 2 LEVELS (01/07/16) URINALYSIS AUTO W/SCOPE (03/27/16) Problem List Initiated/Reviewed/Updated: Yes My Orders last 24 hours: My Active Orders 08/23/16 17:34 CALCIUM IONIZED,ISTAT [POC] Routine 08/24/16 07:00 Abdomen Ltd [US] Urgent Plan: ASSESSMENT AND RECOMMENDATIONS ABDOMINAL PAIN ASSOCIATED WITH FEVER NAUSEA AND VOMITING-she's had some symptoms of this over the past 2 months. On initial evaluation was found to have evidence of a bezoar which apparently has resolved. Evaluation since admission has included CT scan of the abdomen, ultrasound of the abdomen, and EGD. None of these studies have shown obvious source of her current symptoms. Fever noted on admission has not been recurrent and airway blood cell count has remained within normal range. -Repeat abdominal ultrasound in a.m. -CCK stimulated HIDA on Tuesday ultrasound remains unremarkable -Consider small bowel x-ray to evaluate for proximal bowel obstruction Requesting Provider: ZHANG Date Consult Requested: 08/23/16 Reason for Consult: Fever, abdominal pain, nausea and vomiting Patient History Reviewed: Yes Admission H&P Reviewed: Yes
[2016-08-23] MEDS: Sodium Chloride 0.9% 1,000 ML IV SCH (20:02)
[2016-08-24] MEDS: Magnesium Sulfate/Water 2 GM in Premix Bag 1 BAG IV SCH ×4 (02:38→21:14)
[2016-08-24] MEDS: Metoclopramide 10 MG/2 ML SDV IV SCH ×4 (02:38→21:14)
[2016-08-24] MEDS: Sodium Chloride 0.9% 1,000 ML IV SCH ×2 (02:38→09:31)
--- NOTE | 2016-08-24 09:25 | US ---
Right upper quadrant ultrasound Comparison: Ultrasound and CT from previous day. Findings: Again noted is diffuse fatty infiltration of the liver. There is evidence for focal sparin g near the gallbladder fossa. There is sludge in the gallbladder neck. No stones are seen. The gallb ladder wall measures 3 mm. There is no pain with palpation overlying the gallbladder. The common albert e duct measures 4 mm. A known hemangioma of the right lobe the liver is redemonstrated. Impression: 1. Gallbladder sludge. No acute inflammatory changes are demonstrated. 2. Fatty infiltration of the liver with sparing near the gallbladder fossa.
[2016-08-24] MEDS ORDERED: Acetaminophen 1,000 MG in Premix Bag 1 BAG IV ONE (10:27)
--- NOTE | 2016-08-24 15:04 | PCM.CONSN ---
- General Info Date of Service: 08/24/16 Functional Status: Reports: pain controlled - Review of Systems General: Denies: fever, weakness, chills Pulmonary: Reports: no symptoms Cardiovascular: Reports: no symptoms Gastrointestinal: Reports: Abdominal pain, Nausea, Vomiting. Denies: Constipation, Decreased appetite, Diarrhea, Difficulty swallowing, Flatus, Hematochezia, Melena Systems Review Comment:: This patient has continued to experience some abdominal discomfort, bloating, nausea, vomiting has improved. Repeat ultrasound this morning showed no obvious evidence of cholecystitis. HIDA scan has been ordered for tomorrow morning to further evaluate her current symptoms. Vital signs have been stable and she has remained afebrile. - Patient Data Vitals - most recent: Last Vital Signs Temp 97.8 F 08/24/16 14:19 Pulse 77 08/24/16 14:19 Resp 18 08/24/16 14:19 BP 165/94 H 08/24/16 14:19 Pulse Ox 96 08/24/16 14:19 Weight - most recent: 158 lb 11.196 oz I&O - last 24 hours: Intake & Output 08/24/16 08/24/16 08/24/16 06:59 14:59 22:59 Intake Total 1663 750 Output Total 200 Balance 1663 550 Lab Results last 24 hrs: Laboratory Results - last 24 hr 08/23/16 Range/Units 18:29 POC WB Ioniz Calcium 1.11 L (1.12-1.32) mmol/L Sly Results last 24 hrs: Microbiology 08/23/16 12:53 CLOtest - Final Stomach NEGATIVE CLOTEST Med Orders - Current: Current Medications Acetaminophen (Tylenol) 650 mg PO Q4H PRN PRN Reason: fever/pain Last Admin: 08/23/16 15:08 Dose: 650 mg Sodium Chloride (Normal Saline) 1,000 mls @ 50 mls/hr IV ASDIRECTED LUC Last Admin: 08/24/16 09:31 Dose: 150 mls/hr Magnesium Sulfate 2 gm/ Premix 50 mls @ 25 mls/hr IV Q6H [facility] Stop: 08/25/16 10:59 Last Admin: 08/24/16 14:40 Dose: 25 mls/hr Meperidine HCl (Demerol Feed Handler 300 Mg In 30 Ml) 0 mg IV ASDIRECTED PRN; Protocol PRN Reason: PAIN Last Admin: 08/23/16 07:56 Dose: 300 mg Metoclopramide HCl (Reglan) 10 mg IV Q6H [facility] Last Admin: 08/24/16 14:40 Dose: 10 mg Naloxone HCl (Narcan) 0.1 mg IV ASDIRECTED PRN PRN Reason: RESP Ondansetron HCl (Zofran) 4 mg IVPUSH Q4H PRN PRN Reason: Nausea/Vomiting Last Admin: 08/23/16 06:40 Dose: 4 mg Sodium Chloride (Saline Flush) 10 ml FLUSH ONETIME PRN PRN Reason: per radiology protocol Last Admin: 08/22/16 14:44 Dose: 10 ml Discontinued Medications Acetaminophen (Tylenol) 650 mg PO NOW STA Stop: 08/22/16 15:02 Last Admin: 08/22/16 15:04 Dose: 650 mg Fentanyl (Sublimaze) Confirm Administered Dose 100 mcg .ROUTE .STK-MED ONE Stop: 08/23/16 12:39 Glycopyrrolate () Confirm Administered Dose 1 mg .ROUTE .STK-MED ONE Stop: 08/23/16 12:45 Hydromorphone HCl (Dilaudid Feed Handler 15 Mg In Ns 30 Ml) 0 mg IV ASDIRECTED PRN; Protocol PRN Reason: Pain Last Admin: 08/22/16 19:20 Dose: 15 mg Sodium Chloride (Normal Saline) 70 mls @ 3 mls/sec IV ASDIRECTED LUC Last Admin: 08/22/16 14:44 Dose: 3 mls/sec Calcium Gluconate 2 gm/ Sodium (Chloride) 120 mls @ 100 mls/hr IV ONETIME ONE Stop: 08/23/16 10:41 Last Admin: 08/23/16 09:20 Dose: 100 mls/hr Magnesium Sulfate 2 gm/ Premix 50 mls @ 25 mls/hr IV ONETIME ONE Stop: 08/23/16 10:59 Last Admin: 08/23/16 09:45 Dose: 25 mls/hr Potassium Chloride 20 meq/Lidocaine HCl 2 ml/ Sodium Chloride 112 mls @ 56 mls/ hr IV Q2H LUC Stop: 08/23/16 13:59 Last Admin: 08/23/16 13:33 Dose: 56 mls/hr Acetaminophen 1,000 mg/ Premix 100 mls @ 400 mls/hr IV NOW ONE Stop: 08/24/16 10:41 Last Admin: 08/24/16 10:36 Dose: 400 mls/hr Iopamidol (Isovue-300 (61%)) 100 ml IV . DIRECTED PRN PRN Reason: RADIOLOGY EXAM Stop: 08/23/16 14:37 Last Admin: 08/22/16 14:44 Dose: 100 ml Midazolam HCl (Versed 1 Mg/Ml) Confirm Administered Dose 2 mg .ROUTE .STK-MED ONE Stop: 08/23/16 12:40 Morphine Sulfate (Morphine) 1 mg IVPUSH Q1H PRN PRN Reason: Pain Pantoprazole Sodium (Protonix Iv) 40 mg IVPUSH ONETIME ONE Stop: 08/22/16 16:35 Last Admin: 08/22/16 16:41 Dose: 40 mg Propofol (Diprivan 20 Ml) Confirm Administered Dose 200 mg .ROUTE .STK-MED ONE Stop: 08/23/16 12:40 - Exam General: alert, oriented, cooperative, mild distress Lungs: Clear to auscultation, Normal respiratory effort Cardiovascular: regular rate, regular rhythm, no murmurs Abdomen: bowel sounds present, soft, tenderness, distension Extremities: no edema Consult PN Assessment/Plan Procedures: Procedures AG DETECT NOS IA MULT (09/28/13) ASSAY OF TROPONIN QUANT (03/27/16) ASSAY THYROID STIM HORMONE (03/27/16) COMP SCREEN MAMMOGRAM ADD-ON (05/26/16) COMPLETE CBC W/AUTO DIFF WBC (03/27/16) COMPREHEN METABOLIC PANEL (03/27/16) CT ABD & PELV W/CONTRAST (01/24/14) CULTURE SCREEN ONLY (06/17/16) DIAGNOSTIC COLONOSCOPY (06/19/14) EGD BIOPSY SINGLE/MULTIPLE (06/17/16) EGD REMOVE LESION SNARE (06/19/14) ELECTROCARDIOGRAM TRACING (03/27/16) EMERGENCY DEPT VISIT (03/27/16) EMERGENCY DEPT VISIT (09/28/13) EMERGENCY DEPT VISIT (09/28/13) HEP B SURFACE ANTIBODY (09/28/13) HEPATITIS C AB TEST (09/28/13) HEPATOBIL SYST IMAGE W/DRUG (01/25/14) INJECTION FOR HIP X-RAY (08/08/15) MANUAL THERAPY 1/> REGIONS (04/08/16) MRI JOINT OF LWR EXTR W/DYE (08/08/15) MRI LUMBAR SPINE W/O & W/DYE (07/26/14) PT EVALUATION (03/16/16) ROUTINE VENIPUNCTURE (03/27/16) THER/PROPH/DIAG INJ IV PUSH (03/27/16) THERAPEUTIC EXERCISES (04/08/16) TX/PRO/DX INJ SAME DRUG ENGINEER AND GEOLOGIST (03/27/16) ULTRASOUND THERAPY (07/30/15) UPR/L XTREMITY ART 2 LEVELS (01/07/16) URINALYSIS AUTO W/SCOPE (03/27/16) Problem List Initiated/Reviewed/Updated: Yes My Orders last 24 hours: My Active Orders 08/25/16 08:00 Cholescintigraphy w Pharm Int [NM] Urgent Plan: ASSESSMENT AND RECOMMENDATIONS ABDOMINAL PAIN ASSOCIATED WITH FEVER NAUSEA AND VOMITING-she's had some symptoms of this over the past 2 months. On initial evaluation was found to have evidence of a bezoar which apparently has resolved. Evaluation since admission has included CT scan of the abdomen, ultrasound of the abdomen, and EGD. None of these studies have shown obvious source of her current symptoms. Fever noted on admission has not been recurrent and white blood cell count has remained within normal range. Symptoms have improved over the past 24 hours although she's had nothing to eat, ultrasound remains unremarkable -CCK stimulated HIDA tomorrow -Consider small bowel x-ray to evaluate for proximal bowel obstruction
[2016-08-24] MEDS ORDERED: Furosemide 20 MG/2 ML VIAL IVPUSH ONE (18:45)
[2016-08-24] MEDS: Acetaminophen 325 MG Tab PO PRN (18:55)
[2016-08-25] MEDS: Magnesium Sulfate/Water 2 GM in Premix Bag 1 BAG IV SCH ×2 (04:07→09:50)
[2016-08-25] MEDS: Metoclopramide 10 MG/2 ML SDV IV SCH ×4 (04:07→21:18)
[2016-08-25] MEDS ORDERED: Dextrose 5%-Lact Ringers w/KCl 1,000 ML IV SCH ×2 (07:30→15:30)
--- NOTE | 2016-08-25 08:53 | PN ---
DATE OF SERVICE: 08/25/2016 SUBJECTIVE: Rosalva reports pain on the pain scale of 1 to 10 as 4/5 in midepigastric area. She did drink some broth yesterday and states that area is still bothering her. Denies any heartburn, is passing gas. Last bowel movement was Tuesday on 08/22/2016, at which time, she had diarrhea. 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 She is n.p.o. for HIDA scan today. Ultrasound yesterday showed some gallbladder sludge. REVIEW OF SYSTEMS: GENERAL: She has had no headache, dizziness, or upper respiratory infection signs and symptoms. NECK: Negative. CHEST: No chest pain, shortness of breath, fast or irregular heart beat. LUNGS: No cough. ABDOMEN: As above. : Negative. EXTREMITIES: No joint pain or swelling. SKIN: Without rash. NEUROLOGIC: No headaches, dizziness, or loss of coordination. PSYCHIATRIC: Negative. Remainder of review of systems negative for any pertinent positives or negatives. OBJECTIVE: GENERAL: Rosalva Hussein is a 55-year-old female. She is alert and orientated. SKIN: Warm and dry. Color pale. VITAL SIGNS: TPR 98.2, 67, 16, and blood pressure 152/91. HEENT: Negative. NECK: Supple. HEART: Regular rate and rhythm. LUNGS: Clear. ABDOMEN: There is tenderness noted in mid epigastric area, slight distention. Remainder of examination of abdomen is soft and nontender. EXTREMITIES: Without peripheral edema. NEUROLOGIC: Intact. SKIN: Without rash. ASSESSMENT: Midepigastric abdominal pain. PLAN: 1. HIDA scan today. Call Dr. Laughlin with results. 2. May give Cozaar, Synthroid, and metoprolol with sips of water this morning. 3. Check amylase, lipase, CBC, CMP, mag, and phos in a.m. 4. D5 LR 20 mEq with KCl 100 mL per hour. 5. Good pulmonary toilet encouraged. 6. We will evaluate p.r.n. or in a.m. Adilene Medina PA-C /[id number]
--- NOTE | 2016-08-25 11:43 | NM ---
Nuclear medicine HIDA scan. History: Right upper quadrant pain. Technique: The patient received intravenously 5.3 millicuries of technetium 99 Choletec followed by static imaging of the upper abdomen. Subsequently, the patient received 1.44 micrograms of CCK follo wed by the gallbladder ejection fraction calculation. The patient complained of right upper quadrant pain following CCK administration. Findings: There is uniform distribution of the radiopharmaceutical throughout the liver. The gallbla dder is visualized at 5 minutes into the exam. There is emptying through the common bile duct into the small bowel. The gallbladder ejection fraction is significantly decreased equal to 7.5%. Normal is generally considered greater than 35%. Impression: 1. Abnormal low ejection fraction with reproduction of presenting symptoms. The finding is suggestiv e of biliary dyskinesia. 2. Normal visualization of the gallbladder.
--- NOTE | 2016-08-25 15:32 | PCM.CONSN ---
- General Info Date of Service: 08/25/16 Functional Status: Reports: pain controlled, ambulating, urinating - Review of Systems General: Denies: fever, weakness, chills Pulmonary: Reports: no symptoms Cardiovascular: Reports: no symptoms Gastrointestinal: Reports: Abdominal pain, Nausea. Denies: Vomiting Systems Review Comment:: This patient has remained stable since yesterday, CCK stimulated HIDA scan was performed today and shows decreased ejection fraction of the gallbladder as well as reproducing the patient's symptoms. Plan will be for laparoscopic cholecystectomy tomorrow by Dr. Laughlin. Vital signs have been stable and she has remained afebrile. - Patient Data Vitals - most recent: Last Vital Signs Temp 97 F 08/25/16 14:50 Pulse 64 08/25/16 14:50 Resp 20 08/25/16 14:50 BP 168/94 H 08/25/16 14:50 Pulse Ox 98 08/25/16 14:50 Weight - most recent: 158 lb 11.196 oz I&O - last 24 hours: Intake & Output 08/25/16 08/25/16 08/25/16 06:59 14:59 22:59 Intake Total 806 730 Output Total 975 400 Balance -169 330 Sly Results last 24 hrs: Microbiology 08/23/16 12:53 CLOtest - Final Stomach NEGATIVE CLOTEST Med Orders - Current: Current Medications Acetaminophen (Tylenol) 650 mg PO Q4H PRN PRN Reason: fever/pain Last Admin: 08/24/16 18:55 Dose: 650 mg Meperidine HCl (Demerol Healthcare Science Specialist 300 Mg In 30 Ml) 0 mg IV ASDIRECTED PRN; Protocol PRN Reason: PAIN Last Admin: 08/23/16 07:56 Dose: 300 mg Metoclopramide HCl (Reglan) 10 mg IV Q6H LUC Last Admin: 08/25/16 09:50 Dose: 10 mg Naloxone HCl (Narcan) 0.1 mg IV ASDIRECTED PRN PRN Reason: RESP Ondansetron HCl (Zofran) 4 mg IVPUSH Q4H PRN PRN Reason: Nausea/Vomiting Last Admin: 08/23/16 06:40 Dose: 4 mg Sodium Chloride (Saline Flush) 10 ml FLUSH ONETIME PRN PRN Reason: per radiology protocol Last Admin: 08/22/16 14:44 Dose: 10 ml Discontinued Medications Acetaminophen (Tylenol) 650 mg PO NOW STA Stop: 08/22/16 15:02 Last Admin: 08/22/16 15:04 Dose: 650 mg Fentanyl (Sublimaze) Confirm Administered Dose 100 mcg .ROUTE .STK-MED ONE Stop: 08/23/16 12:39 Furosemide (Lasix) 20 mg IVPUSH ONETIME ONE Stop: 08/24/16 18:46 Last Admin: 08/24/16 18:49 Dose: 20 mg Glycopyrrolate () Confirm Administered Dose 1 mg .ROUTE .STK-MED ONE Stop: 08/23/16 12:45 Hydromorphone HCl (Dilaudid Healthcare Science Specialist 15 Mg In Ns 30 Ml) 0 mg IV ASDIRECTED PRN; Protocol PRN Reason: Pain Last Admin: 08/22/16 19:20 Dose: 15 mg Sodium Chloride (Normal Saline) 1,000 mls @ 50 mls/hr IV ASDIRECTED [facility] Last Admin: 08/24/16 09:31 Dose: 150 mls/hr Sodium Chloride (Normal Saline) 70 mls @ 3 mls/sec IV ASDIRECTED [facility] Last Admin: 08/22/16 14:44 Dose: 3 mls/sec Calcium Gluconate 2 gm/ Sodium (Chloride) 120 mls @ 100 mls/hr IV ONETIME ONE Stop: 08/23/16 10:41 Last Admin: 08/23/16 09:20 Dose: 100 mls/hr Magnesium Sulfate 2 gm/ Premix 50 mls @ 25 mls/hr IV ONETIME ONE Stop: 08/23/16 10:59 Last Admin: 08/23/16 09:45 Dose: 25 mls/hr Potassium Chloride 20 meq/Lidocaine HCl 2 ml/ Sodium Chloride 112 mls @ 56 mls/ hr IV Q2H LUC Stop: 08/23/16 13:59 Last Admin: 08/23/16 13:33 Dose: 56 mls/hr Magnesium Sulfate 2 gm/ Premix 50 mls @ 25 mls/hr IV Q6H LUC Stop: 08/25/16 10:59 Last Admin: 08/25/16 09:50 Dose: 25 mls/hr Acetaminophen 1,000 mg/ Premix 100 mls @ 400 mls/hr IV NOW ONE Stop: 08/24/16 10:41 Last Admin: 08/24/16 10:36 Dose: 400 mls/hr Potassium Cl/Dextrose/Lact Ringer's (D5 Lr With 20 Meq Kcl) 1,000 mls @ 100 mls /hr IV ASDIRECTED LUC Last Admin: 08/25/16 09:50 Dose: 100 mls/hr Iopamidol (Isovue-300 (61%)) 100 ml IV . DIRECTED PRN PRN Reason: RADIOLOGY EXAM Stop: 08/23/16 14:37 Last Admin: 08/22/16 14:44 Dose: 100 ml Midazolam HCl (Versed 1 Mg/Ml) Confirm Administered Dose 2 mg .ROUTE .STK-MED ONE Stop: 08/23/16 12:40 Morphine Sulfate (Morphine) 1 mg IVPUSH Q1H PRN PRN Reason: Pain Pantoprazole Sodium (Protonix Iv) 40 mg IVPUSH ONETIME ONE Stop: 08/22/16 16:35 Last Admin: 08/22/16 16:41 Dose: 40 mg Propofol (Diprivan 20 Ml) Confirm Administered Dose 200 mg .ROUTE .STK-MED ONE Stop: 08/23/16 12:40 - Exam General: alert, oriented, cooperative, mild distress Lungs: Clear to auscultation, Normal respiratory effort Cardiovascular: regular rate, regular rhythm, no murmurs Abdomen: bowel sounds present, soft, tenderness, distension. No: rigidity, rebound, guarding Extremities: no edema Skin: warm, dry, intact Consult PN Assessment/Plan Procedures: Procedures AG DETECT NOS IA MULT (09/28/13) ASSAY OF TROPONIN QUANT (03/27/16) ASSAY THYROID STIM HORMONE (03/27/16) COMP SCREEN MAMMOGRAM ADD-ON (05/26/16) COMPLETE CBC W/AUTO DIFF WBC (03/27/16) COMPREHEN METABOLIC PANEL (03/27/16) CT ABD & PELV W/CONTRAST (01/24/14) CULTURE SCREEN ONLY (06/17/16) DIAGNOSTIC COLONOSCOPY (06/19/14) EGD BIOPSY SINGLE/MULTIPLE (06/17/16) EGD REMOVE LESION SNARE (06/19/14) ELECTROCARDIOGRAM TRACING (03/27/16) EMERGENCY DEPT VISIT (03/27/16) EMERGENCY DEPT VISIT (09/28/13) EMERGENCY DEPT VISIT (09/28/13) HEP B SURFACE ANTIBODY (09/28/13) HEPATITIS C AB TEST (09/28/13) HEPATOBIL SYST IMAGE W/DRUG (01/25/14) INJECTION FOR HIP X-RAY (08/08/15) MANUAL THERAPY 1/> REGIONS (04/08/16) MRI JOINT OF LWR EXTR W/DYE (08/08/15) MRI LUMBAR SPINE W/O & W/DYE (07/26/14) PT EVALUATION (03/16/16) ROUTINE VENIPUNCTURE (03/27/16) THER/PROPH/DIAG INJ IV PUSH (03/27/16) THERAPEUTIC EXERCISES (04/08/16) TX/PRO/DX INJ SAME DRUG WEAVING MACHINE OPERATOR (03/27/16) ULTRASOUND THERAPY (07/30/15) UPR/L XTREMITY ART 2 LEVELS (01/07/16) URINALYSIS AUTO W/SCOPE (03/27/16) Problem List Initiated/Reviewed/Updated: Yes My Orders last 24 hours: My Active Orders 08/24/16 17:24 Convert IV to Peripheral Lock [Convert IV to Saline Lock] [OM.PC] Routine 08/25/16 15:30 Dextrose 5%-Lact Ringers w/KCl [D5 LR with 20 mEq KCl] 1,000 ml IV ASDIRECTED Plan: ASSESSMENT AND RECOMMENDATIONS ACUTE ON CHRONIC CHOLECYSTITIS-she's had some symptoms of this over the past 2 months. On initial evaluation was found to have evidence of a bezoar which apparently has resolved. Evaluation since admission has included CT scan of the abdomen, ultrasound of the abdomen, and EGD. None of these studies have shown obvious source of her current symptoms. Fever noted on admission has not been recurrent and white blood cell count has remained within normal range. CCK stimulated HIDA scan reproduced her symptoms and shows decreased gallbladder ejection fraction. -[facility]apar[facility] will sign off on the patient at this time if we can be of further assistance in medical management during her hospital stay please feel free to reconsult
[2016-08-26] MEDS: Metoclopramide 10 MG/2 ML SDV IV SCH ×4 (02:03→19:55)
[2016-08-26] MEDS ORDERED: Potassium Chloride 100 ML IV ONE (07:00)
[2016-08-26] MEDS ORDERED: Lidocaine 1% 50 ML MDV INJECT SCH (07:00)
[2016-08-26] MEDS ORDERED: Scopolamine 1.5 MG Transdermal Patch TRDERM SCH (07:30)
[2016-08-26] MEDS ORDERED: Potassium Chloride 20 MEQ, Lidocaine 1% 2 ML in Sodium Chloride 0.9% 100 ML IV ONE (07:45)
--- NOTE | 2016-08-26 08:07 | PN ---
DATE OF SERVICE: 08/26/2016 SUBJECTIVE: Rosalva is n.p.o. for laparoscopic possible laparotomy, cholecystectomy today. She had a positive HIDA scan yesterday. She has been afebrile, n.p.o. since midnight. Oral intake yesterday was 1230 and output was 2200. Remainder of review of systems negative for any pertinent positives or negatives. Labs were reviewed. Potassium was 3.3. OBJECTIVE: GENERAL: Rosalva is a 55-year-old female. She is alert and orientated, color pale. SKIN: Warm and dry. VITAL SIGNS: TPR 98.8, 68, 18, blood pressure 160/94. HEENT: Negative. NECK: Supple. HEART: Regular rate and rhythm. LUNGS: Clear. ABDOMEN: Remains to have mid epigastric abdominal pain with slight distention. EXTREMITIES: Without peripheral edema. ASSESSMENT: 1. Nausea. 2. Abdominal pain in mid epigastric area. 3. Abnormal HIDA scan. PLAN: 1. Prescribed scopolamine patch now, replace every 72 hours. 2. Give KCl 20 mEq IV one time. 3. We will evaluate p.r.n. or in a.m. Adilene Medina PA-C /[id number]
[2016-08-26] MEDS ORDERED: Bupivacaine 0.5%/EPINEPHrine 1:200,000 50 ML MDV ONE (08:09)
[2016-08-26] MEDS: Acetaminophen 325 MG Tab PO PRN (08:17)
[2016-08-26] MEDS ORDERED: Midazolam 1 MG/ML 2 ML SDV ONE (10:13)
[2016-08-26] MEDS ORDERED: fentaNYL 250 MCG/5 ML SDV ONE (10:13)
[2016-08-26] MEDS ORDERED: Neostigmine Methylsulfate 1 MG/ML 5 ML Syringe ONE (10:14)
[2016-08-26] MEDS ORDERED: Propofol 200 MG/20 ML SDV ONE (10:14)
[2016-08-26] MEDS ORDERED: Rocuronium 50 MG/5 ML Vial ONE (10:14)
[2016-08-26] MEDS ORDERED: Ondansetron 4 MG/2 ML SDV ONE (10:14)
[2016-08-26] MEDS ORDERED: Dexamethasone 4 MG/ML SDV ONE (10:14)
[2016-08-26] MEDS ORDERED: cefOXitin 2 GM Vial ONE (11:33)
[2016-08-26] MEDS ORDERED: Lactated Ringers 1,000 ML ONE (11:41)
[2016-08-26] MEDS ORDERED: Edrophonium Chloride 150 MG/15 ML MDV ONE (11:49)
[2016-08-26] MEDS: Labetalol 20 MG/4 ML Syringe IVPUSH ONE ×3 (12:41→13:01)
[2016-08-26] MEDS ORDERED: Dextrose 5%-Lactated Ringers 1,000 ML IV SCH (14:00)
[2016-08-26] MEDS ORDERED: Acetaminophen/HYDROcodone 325-5 MG Tab PO PRN (14:00)
[2016-08-26] MEDS ORDERED: Pantoprazole 40 MG Vial IVPUSH SCH (16:00)
[2016-08-26] MEDS: Meperidine 300 MG/30 ML PCA Vial IV PRN (16:53)
[2016-08-26] MEDS: Losartan 50 MG Tab PO SCH (18:46)
[2016-08-26] MEDS: Hydrochlorothiazide 25 MG Tab PO SCH (18:46)
[2016-08-26] MEDS: Metoprolol Succinate 50 MG Tab.ER PO SCH (18:46)
[2016-08-26] MEDS: cefOXitin 2 GM in Sodium Chloride 0.9% 50 ML IV SCH ×2 (18:47→23:46)
[2016-08-26] MEDS: VERIFY SCOP PATCH TOP SCH (18:48)
[2016-08-27] MEDS: Metoclopramide 10 MG/2 ML SDV IV SCH ×4 (02:16→20:33)
[2016-08-27] MEDS: cefOXitin 2 GM in Sodium Chloride 0.9% 50 ML IV SCH ×4 (05:40→23:18)
--- NOTE | 2016-08-27 08:02 | PN ---
DATE OF SERVICE: 08/27/2016 SUBJECTIVE: Rosalva is postop day 1 following a laparoscopic cholecystectomy. Her NURY drain has been draining almost clear serosanguineous drainage of just 40 mL. Her intake has been 420; output is 4450. REVIEW OF SYSTEMS: Negative for any other pertinent positives or negatives. Last BM was 08/22/2016. OBJECTIVE: GENERAL: Rosalva Hussein is a 55-year-old female, alert and orientated, color pale. VITAL SIGNS: TPR 98.8, 60, 18, blood pressure 168/90. HEENT: Negative. NECK: Supple. HEART: Regular rate and rhythm. LUNGS: Clear. ABDOMEN: Dressings dry and intact. NURY drain intact, draining a light pink serous drainage. EXTREMITIES: Without peripheral edema. ASSESSMENT: Laparoscopic cholecystectomy. PLAN: 1. Discontinue LIDAR SCIENTIST. 2. Discontinue continuous pulse ox. 3. Tylenol 650 mg scheduled every 4 hours. 4. Regular diet. 5. Saline lock IV. 6. Discontinue NURY drain. 7. Dressing off, may shower. 8. Dulcolax tabs 2 one time today p.o. 9. Good pulmonary toilet encouraged. 10.We will evaluate p.r.n. or in a.m. Adilene Medina PA-C /[id number]
[2016-08-27] MEDS: Acetaminophen 325 MG Tab PO SCH ×5 (08:16→23:18)
[2016-08-27] MEDS: Hydrochlorothiazide 25 MG Tab PO SCH (08:18)
[2016-08-27] MEDS: Metoprolol Succinate 50 MG Tab.ER PO SCH (08:18)
[2016-08-27] MEDS: Losartan 50 MG Tab PO SCH (08:18)
[2016-08-27] MEDS: VERIFY SCOP PATCH TOP SCH (08:19)
[2016-08-27] MEDS ORDERED: Ibuprofen 600 MG Tab PO PRN (08:59)
[2016-08-27] MEDS ORDERED: Bisacodyl 5 MG Tab PO ONE (09:00)
[2016-08-27] MEDS: Levothyroxine 50 MCG Tab PO SCH (10:39)
[2016-08-27] MEDS ORDERED: Calcium Carbonate 500 MG Tab.Chew PO ONE (14:00)
[2016-08-27] MEDS ORDERED: Ibuprofen 200 MG Tab PO PRN (15:30)
[2016-08-27] MEDS ORDERED: Pantoprazole 40 MG Tab.CR PO SCH (16:30)
[2016-08-28] MEDS: Metoclopramide 10 MG/2 ML SDV IV SCH ×2 (01:47→08:06)
[2016-08-28] MEDS: Acetaminophen 325 MG Tab PO SCH ×2 (04:43→08:05)
[2016-08-28] MEDS: cefOXitin 2 GM in Sodium Chloride 0.9% 50 ML IV SCH (05:35)
[2016-08-28] MEDS: Levothyroxine 50 MCG Tab PO SCH (06:56)
[2016-08-28 06:59] VITALS: BP 146/94
[2016-08-28] MEDS: Metoprolol Succinate 50 MG Tab.ER PO SCH (08:32)
[2016-08-28] MEDS: Losartan 50 MG Tab PO SCH (08:33)
[2016-08-28] MEDS: Hydrochlorothiazide 25 MG Tab PO SCH (08:33)
[2016-08-28] MEDS: VERIFY SCOP PATCH TOP SCH (10:05)
--- NOTE | 2016-08-30 00:25 | DISCH ---
ADMISSION DIAGNOSES: 1. Abdominal pain. 2. Hypertension. 3. Gastroesophageal reflux disease. 4. Chronic back pain. 5. Anxiety. 6. Hypothyroidism. DISCHARGE DIAGNOSIS: Laparoscopic cholecystectomy for chronic cholecystitis. HISTORY: Rosalva Hussein is a 55-year-old female with abdominal pain. She was admitted to the hospital on 08/23/2016. She had an EGD on 08/24/2016, followed by an ultrasound and HIDA scan which was positive. After preoperative evaluation and discussion of possible risks and possible complications, she wished to proceed with surgical procedure. Rosalva had her laparoscopic cholecystectomy on 08/26/2016. She had no operative complications. On postop day 1, she tolerated a diet well. She was changed to oral pain medication. Vital signs remained stable and she was able to be discharged to home. PHYSICAL EXAMINATION: GENERAL: Rosalva is a 55-year-old female. Height is 5 feet 1 inch. Weight is 158 pounds. VITAL SIGNS: TPR is 98, 60, 16. Blood pressure 146/94. HEENT: Negative. NECK: Supple. HEART: Regular rate and rhythm. LUNGS: Clear. ABDOMEN: Incisions look good. Abdominal binder is on. EXTREMITIES: Without peripheral edema. DISPOSITION: Discharged to home. CONDITION: Stable and improving. FOLLOWUP: Adilene Medina PA-C, on 09/02/2016 at 10:00 a.m. MEDICATIONS: 1. Tylenol 650 mg oral every 4 hours p.r.n. pain. 2. Hydrochlorothiazide 25 mg oral daily. 3. Ibuprofen 600 mg oral q.6 hours p.r.n. pain. 4. Synthroid 50 mcg oral before breakfast. 5. Cozaar 100 mg oral daily. 6. Toprol-XL 50 mg p.o. daily. 7. She is to resume her home medication of aspirin 81 mg daily, biotin 5000 mcg daily, B12 500 mg oral daily, Flexeril 10 mg oral 3 times a day p.r.n. muscle spasms, Nexium 40 mg before breakfast, Flonase 2 sprays nasally once a day, and fish oil 1200 mg oral daily, and B6 100 mg oral daily. DISCHARGE INSTRUCTIONS: Diet after discharge: Usual diet as tolerated. Drink 8 to 10 glasses of water a day. Activity after discharge: As tolerated. No lifting greater than 10 pounds for 2 weeks. Driving after discharge: Do not drive on pain medication. Shower: May shower. Notify provider if any fever, increased pain, swelling, redness, drainage, nausea, or vomiting. Wound incision care: Keep site clean and dry. Wear abdominal binder for 2 weeks and as tolerated. Use incentive spirometer 10 times every hour while awake for 2 weeks.
--- NOTE | 2016-08-30 08:57 | OR ---
DATE OF PROCEDURE: 08/23/2016 PREOPERATIVE DIAGNOSIS: Upper abdominal pain. POSTOPERATIVE DIAGNOSES: Upper abdominal pain associated with: 1. Minimal antral gastritis. 2. Intact Zeb fundoplication with no gross inflammation at esophagogastric junction. OPERATIVE PROCEDURE: Esophagogastroduodenoscopy with antral biopsies for CLOtest. ANESTHESIA: IV sedation. INDICATIONS FOR PROCEDURE: This is a 55-year-old admitted with upper abdominal pain. Plan is to proceed with initial upper GI endoscopy with biopsies as indicated. Potential risks including bleeding and perforation were discussed, and the patient wishes to proceed. DETAILS OF PROCEDURE: The patient was taken to the operating room and placed in left lateral decubitus position. IV sedation was administered after which the upper GI endoscope was passed orally through the length of the esophagus, into the stomach, with retroflexion view of the fundus, thereafter through the pyloric channel and into the proximal duodenum. Findings included normal hypopharynx, larynx, upper esophageal sphincter, and esophageal body. At the EG junction, the patient had an intact Zeb effect with no gross inflammation. There was no stricturing or other evidence of pathology at the EG junction. Within the stomach, there was some very minimal antral gastritis. This was related to some mild patchy reddened areas without erosions or ulcers. The pyloric channel and duodenum to the junction of the third and fourth portions was unremarkable. At this point, biopsies obtained from the antrum and sent for CLOtest for H. pylori. Minimal bleeding from the biopsy sites was seen, and the procedure was then concluded. Overall, there appeared to be no adequate explanation for the patient's symptoms based on upper endoscopic examination. We will initiate further workup with an ultrasound tomorrow and if necessary a CCK-stimulated HIDA scan. Kanu Laughlin MD /[id number]
--- NOTE | 2016-08-30 10:06 | OR ---
DATE OF PROCEDURE: 08/25/2016 PREOPERATIVE DIAGNOSIS: Biliary dyskinesia. POSTOPERATIVE DIAGNOSIS: Subacute cholecystitis with pericholecystic abscess (sterile versus infected). OPERATIVE PROCEDURE: Diagnostic laparoscopy with: 1. Cholecystectomy (24998). 2. Drainage of pericholecystic abscess (81837). ANESTHESIA: General. SOURCING ANALYST: Adilene Medina PA-C INDICATIONS FOR PROCEDURE: This is a 55-year-old, admitted with upper abdominal pain and nausea. Workup eventually established a gallbladder with a low ejection fraction and at the CCK injection, the symptoms were reproduced. Given this, she is to undergo cholecystectomy. Potential risks including bleeding, infection, injury to underlying viscera such as common bile duct, possible persistent symptoms such were all reviewed, and the patient wishes to proceed. DETAILS OF PROCEDURE: The patient was taken to the operating room and placed in a supine position. After general endotracheal anesthesia was induced, the abdomen was prepped and draped. A transverse epigastric incision was made. Peritoneal cavity entered under direct vision with Optiview trocar, inflated with 15 mmHg pressure with CO2. Laparoscope was then reinserted. No underlying trocar insertion site injuries were seen. Following this, a 12 mm subumbilical trocar was placed along with a 5 mm right abdominal trocar. The upper abdomen was then examined. The patient was noted to have a quite distended gallbladder; as this was retracted upward, there was a thin, purulent fluid collection behind the gallbladder. This was aspirated and sent for cultures. This pericholecystic fluid collection or thin abscess may be a sterile abscess versus infected with cultures pending. Gallbladder was quite strikingly edematous and clearly involved in a subacute cholecystitis. The gallbladder was retracted anterolaterally and dissection began on the gallbladder neck, continued around the gallbladder neck and cystic duct junction. Once that area was well delineated, 3 clips were placed proximally and once distally, and as was the cystic artery, and the gallbladder was dissected free from its liver attachments with Harmonic scalpel. It was delivered through the upper midline port. The areas of dissection were then inspected. No bleeding or bile leaks were seen. A Semaj-Garcia drain was taken out through the right lateral trocar site and placed into the areas of the pericholecystic abscess in the gallbladder bed. The trocars were then removed. The fascia was closed with 0 Vicryl stitch and the skin with 6-0 Vicryl skin stitch. Dressing was applied. The patient was taken to the recovery room in satisfactory condition. Physician wardrobe assistant Adilene Medina played an essential role in assisting in this case, helping to position the patient, retract structures as needed, as well as suturing and cutting sutures when indicated. Her presence improved the patient's safety and decreased operative time. Kanu Laughlin MD /[id number]
== END 2016-08-28 09:30 | disposition home or self-care (01) | DRG 419 ==
LOC: JP.ED 13:33 → UNDOADMOB 17:15 → JP.MS 17:15 → INTOOBSV 08-23 07:41 → OBSVTOIN 08-23 07:41 → JP.MS 08-23 09:10 → UNDODISIN 08-28 09:30
PROVIDERS: ADMIT Surgery; ATTEND Surgery
PROC: 0DB68ZX Excision of Stomach, Via Natural or Artificial Opening Endoscopic, Diagnostic (ICD-10-PCS; principal; 2016-08-23)
PROC: 0W9G4ZX Drainage of Peritoneal Cavity, Percutaneous Endoscopic Approach, Diagnostic (ICD-10-PCS; 2016-08-25)
PROC: 0FT44ZZ Resection of Gallbladder, Percutaneous Endoscopic Approach (ICD-10-PCS; 2016-08-25)
DX: K81.2 Acute cholecystitis with chronic cholecystitis (principal); E03.9 Hypothyroidism, unspecified; R10.13 Epigastric pain; R11.0 Nausea; R50.9 Fever, unspecified; Z87.891 Personal history of nicotine dependence; Z98.1 Arthrodesis status; M54.9 Dorsalgia, unspecified; G89.29 Other chronic pain; K44.9 Diaphragmatic hernia without obstruction or gangrene; K21.9 Gastro-esophageal reflux disease without esophagitis; Z87.440 Personal history of urinary (tract) infections; H54.7 Unspecified visual loss; Z79.82 Long term (current) use of aspirin; Z88.8 Allergy status to other drugs, medicaments and biological substances; F41.9 Anxiety disorder, unspecified
CPT/HCPCS: 36415 ×2; 74020 ×2; 74177; 76700; 80053 ×2; 81001; 82150 ×2; 83605; 83690 ×2; 83735; 84100; 84484; 85025; 85027; 87040 ×2; 87086; 94762; 96374; 99285 ×2; A9270 ×2; C9113; J1170; J2405 ×3; J2765 ×2; J7030; J7040; J7050; Q9967; 76705; 76705-26; 78227; 78227-26; 82330; 87070; 87075; 87081; 87205; 88304; J0131; J0610; J0694; J1100; J1940; J2175; J2250; J2270; J2704; J3010; J3475; J3480; J7042; J7120

== ENCOUNTER 2017-12-02 08:21 | Day surgery (SDC) | payer MEDICARE, MEDICAID ==
[2017-12-02] MEDS ORDERED: Dextrose 5%-Lactated Ringers 1,000 ML IV SCH (09:00)
[2017-12-02] MEDS ORDERED: fentaNYL 100 MCG/2 ML SDV ONE (09:54)
[2017-12-02] MEDS ORDERED: Propofol 200 MG/20 ML SDV ONE (09:54)
[2017-12-02] MEDS ORDERED: Midazolam 1 MG/ML 2 ML SDV ONE (09:54)
[2017-12-02 13:00] VITALS: BP 126/77
--- NOTE | 2017-12-05 15:25 | OR ---
DATE OF PROCEDURE: 12/02/2017 PREOPERATIVE DIAGNOSES: History of abdominal cramping and loose stools. POSTOPERATIVE DIAGNOSES: 1. History of abdominal cramping and loose stools. 2. Grossly normal colonoscopic examination. OPERATIVE PROCEDURES: Flexible colonoscopy with; 1. Collection of stool for microbiologic workup. 2. Random colorectal biopsies to rule out microscopic colitis. ANESTHESIA: IV sedation. INDICATION FOR PROCEDURE: This is a 57-year-old presenting with some crampy abdominal pain along with some frequent loose stools. A CT scan showed some potential thickening of the colon wall. The plan is to proceed with a flexible colonoscopy with biopsies as indicated. We will plan to have a collection of stool for microbiologic workup as well. Potential risks including bleeding and perforation were discussed, and the patient wishes to proceed. DETAILS OF PROCEDURE: The patient was taken to the operating room and placed in a left lateral decubitus position. IV sedation was administered, after which the initial digital rectal exam was performed and was unremarkable. Colonoscope was then passed into the rectum with retroflexion revealing uncomplicated hemorrhoidal columns. The scope was then eventually passed to the level of the cecum. The prep was quite good with there being only a small amount of liquid stool present. This was collected and sent for a full microbiologic workup including C. difficile enterotoxin. The mucosal surfaces at this point were entirely normal. Apart from that, there were no diverticula and certainly no signs of neoplasia. Multiple random biopsies were then obtained from the cecum through the rectum and sent for histologic evaluation to rule out microscopic colitis. Minimal bleeding from the biopsy sites was seen, and the procedure then concluded. The patient was taken to the recovery room in a satisfactory condition. In 7 to 10 days, she will be following up with her personal physician to review the findings. If these are all negative, this may be a case for something like irritable bowel syndrome that may be ongoing. Kanu Laughlin MD Job #: [id number]
== END 2017-12-02 13:25 | disposition home or self-care (01) ==
LOC: JP.SDS 08:21
PROVIDERS: ATTEND Surgery
DX: R10.9 Unspecified abdominal pain (principal); R19.7 Diarrhea, unspecified; K64.9 Unspecified hemorrhoids; I10 Essential (primary) hypertension
CPT/HCPCS: 45380; 87046; 87177; 87209; 87493; 87899; 89055; J2250; J2704; J3010; J7042; 88305

== ENCOUNTER 2017-12-03 07:56 | Emergency (ER) | payer MEDICARE, MEDICAID ==
[2017-12-03 08:30] VITALS: BP 164/100
[2017-12-03] MEDS ORDERED: Sodium Chloride 0.9% 1,000 ML IV SCH (09:00)
--- NOTE | 2017-12-03 09:01 | EDM.PDOC ---
ED HPI GENERAL MEDICAL PROBLEM - General Chief Complaint: Abdominal Pain Stated Complaint: STOMACH PAIN HAD CHOLESCOPY 12/02/17 Time Seen by Provider: 12/03/17 08:59 Source of Information: Reports: Patient History Limitations: Reports: No Limitations - History of Present Illness INITIAL COMMENTS - FREE TEXT/NARRATIVE: pt had a colonoscopy done yesterday. She is having squeezing chest pain in the upper abdoman. She has been nauseated but has not vomited. Onset: Other ( started in the nite) Duration: Hour(s): Location: Reports: Abdomen Associated Symptoms: Reports: Nausea/Vomiting, Other ( squeezing abdomanal pain that comes and goes. ) Epigastric Pain Score (Numeric/FACES): 8 - Related Data Allergies Allergy/AdvReac Type Severity Reaction Status Date / Time metaxalone Allergy Cannot Verified 12/02/17 08:35 Remember ether AdvReac Nausea Verified 12/02/17 08:35 metronidazole AdvReac Tachycardia Verified 12/02/17 08:35 Home Meds: Home Meds Aspirin [Adult Low Dose Aspirin EC] 81 mg PO DAILY 01/24/14 [History] Montelukast Sodium 10 mg PO BEDTIME 01/24/14 [History] Esomeprazole [NexIUM] 40 mg PO ACBREAKFAST 08/08/15 [History] Fluticasone Propionate [Flonase] 2 spray NS DAILY 08/08/15 [History] Losartan [Cozaar] 100 mg PO DAILY 03/27/16 [History] Metoprolol Succinate [Toprol XL] 50 mg PO DAILY 06/15/16 [History] Acetaminophen [Tylenol] 650 mg PO Q4H tablet 08/27/16 [Rx] Hydrochlorothiazide 25 mg PO DAILY tablet 08/27/16 [Rx] Ibuprofen [Motrin] 600 mg PO Q6H PRN #0 tablet 08/27/16 [Rx] Levothyroxine [Synthroid] 50 mcg PO ACBREAKFAST tablet 08/27/16 [Rx] Omeprazole 20 mg PO DAILY 12/01/17 [History] Past Medical History HEENT History: Reports: Impaired Vision Other HEENT History: wears reading glasses Cardiovascular History: Reports: Hypertension Gastrointestinal History: Reports: Bowel Obstruction, GERD, Hiatal Hernia Genitourinary History: Reports: UTI, Recurrent [employer] History: Reports: 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, Musculoskeletal History: Reports: Back Pain, Chronic Neurological History: Reports: None Psychiatric History: Reports: Anxiety Endocrine/Metabolic History: Reports: Hypothyroidism Dermatologic History: Reports: None - Infectious Disease History Infectious Disease History: Reports: None - Past Surgical History Head Surgeries/Procedures: Reports: None HEENT Surgical History: Reports: Other (See Below) Other HEENT Surgeries/Procedures: wisdom teeth GI Surgical History: Reports: Colonoscopy, EGD, Zeb Fundoplication Female Surgical History: Reports: Hysterectomy, Oophorectomy, Tubal Ligation Endocrine Surgical History: Reports: Thyroidectomy Other Endocrine Surgeries/Procedures: partial Neurological Surgical History: Reports: Spinal Fusion Musculoskeletal Surgical History: Reports: Carpal Tunnel Dermatological Surgical History: Reports: Other (See Below) Social & Family History - Family History Family Medical History: Noncontributory : Reports: None Musculoskeletal: Reports: None - Tobacco Use Smoking Status *Q: Never Smoker - Caffeine Use Caffeine Use: Reports: Coffee - Recreational Drug Use Recreational Drug Use: No ED ROS GENERAL - Review of Systems Review Of Systems: See Below Constitutional: Reports: Decreased Appetite HEENT: Reports: No Symptoms Respiratory: Reports: No Symptoms Cardiovascular: Reports: Other (pt has epigastric pain. ) Endocrine: Reports: No Symptoms GI/Abdominal: Reports: Abdominal Pain, Other (pt feels like she has alot of gas) : Reports: No Symptoms Musculoskeletal: Reports: No Symptoms Skin: Reports: No Symptoms Neurological: Reports: No Symptoms Psychiatric: Reports: Anxiety ED EXAM, GI/ABD - Physical Exam Exam: See Below Text/Narrative:: pt arrived with pain in the epigastric area. This feels tight, She does not have chest pain. She has not vomited. Exam Limited By: No Limitations General Appearance: Alert, Moderate Distress Ears: Normal TMs Nose: Normal Inspection Throat/Mouth: Normal Inspection Head: Atraumatic Neck: Normal Inspection Respiratory/Chest: No Respiratory Distress Cardiovascular: Regular Rate, Rhythm GI/Abdominal Exam: Tender, Other ( epigastric area is tender. Pt has a a besar in the past. She is on prilosec. ) (Female) Exam: Deferred Rectal (Female) Exam: Deferred Back Exam: Normal Inspection Extremities: Normal Inspection Neurological: Alert, Oriented, Normal Cognition Course - Vital Signs Last Recorded V/S: Last Vital Signs Temp 36.4 C 12/03/17 08:31 Pulse 78 12/03/17 08:31 Resp 17 12/03/17 08:31 BP 164/100 H 12/03/17 08:31 Pulse Ox 97 12/03/17 08:31 - Orders/Labs/Meds Orders: Active Orders 24 hr Category Date Time Status EKG Documentation Completion [RC] ASDIRECTED Care 12/03/17 12:32 Active Abdomen Pelvis w Cont [CT] Stat Exams 12/03/17 10:06 Taken Abdomen Series w Chest 1V [CR] Urgent Exams 12/03/17 08:58 Taken UA W/MICROSCOPIC [URIN] Urgent Lab 12/03/17 09:01 Ordered Iopamidol [Isovue-300 (61%)] Med 12/03/17 10:17 Active 100 ml IV . DIRECTED PRN Sodium Chloride 0.9% [Normal Saline] 1,000 ml Med 12/03/17 09:00 Active IV ASDIRECTED Sodium Chloride 0.9% [Normal Saline] 77 ml Med 12/03/17 10:30 Active IV ASDIRECTED EKG 12 Lead [EK] Routine Ther 12/03/17 12:32 Ordered Medication Orders Sodium Chloride (Normal Saline) 1,000 mls @ 999 mls/hr IV ASDIRECTED [facility] Last Admin: 12/03/17 09:16 Dose: 999 mls/hr Sodium Chloride (Normal Saline) 77 mls @ 3 mls/sec IV ASDIRECTED LUC Stop: 12/03/17 23:00 Last Admin: 12/03/17 10:29 Dose: 3 mls/sec Iopamidol (Isovue-300 (61%)) 100 ml IV . DIRECTED PRN PRN Reason: RADIOLOGY EXAM Stop: 12/04/17 10:18 Last Admin: 12/03/17 10:29 Dose: 100 ml Labs: Laboratory Tests 12/03/17 12/03/17 12/03/17 Range/Units 08:58 08:58 09:01 WBC 6.0 (4.5-11.0) K/uL RBC 4.25 (3.30-5.50) M/uL Hgb 12.0 (12.0-15.0) g/dL Hct 36.0 (36.0-48.0) % MCV 85 (80-98) fL MCH 28 (27-31) pg MCHC 33 (32-36) % Plt Count 202 (150-400) K/uL Neut % (Auto) 63 (36-66) % Lymph % (Auto) 28 (24-44) % [place] % (Auto) 7 H (2-6) % Eos % (Auto) 1 L (2-4) % Baso % (Auto) 0 (0-1) % Sodium 140 (140-148) mmol/L Potassium 3.3 L (3.6-5.2) mmol/L Chloride 103 (100-108) mmol/L Carbon Dioxide 28 (21-32) mmol/L Anion Gap 12.3 (5.0-14.0) mmol/L BUN 11 D (7-18) mg/dL Creatinine 1.0 (0.6-1.0) mg/dL Est Cr Clr Drug Dosing 47.91 mL/min Estimated GFR (MDRD) 57 L (>60) Glucose 107 H (74-106) mg/dL Calcium 8.3 L (8.5-10.1) mg/dL Total Bilirubin 0.7 D (0.2-1.0) mg/dL AST 19 (15-37) U/L ALT 20 (12-78) U/L Alkaline Phosphatase 86 D (46-116) U/L Troponin I (0.000-0.056) ng/mL C-Reactive Protein (0.0-0.3) mg/dL Total Protein 6.5 (6.4-8.2) g/dL Albumin 3.2 L (3.4-5.0) g/dL Globulin 3.3 (2.3-3.5) g/dL Albumin/Globulin Ratio 1.0 L (1.2-2.2) Urine Color Yellow Urine Appearance Clear Urine pH 6.0 (4.5-8.0) Ur Specific [place] 1.010 (1.008-1.030) Urine Protein Negative (NEGATIVE) mg/dL Urine Glucose (UA) Normal (NEGATIVE) mg/dL Urine Ketones Negative (NEGATIVE) mg/dL Urine Occult Blood Negative (NEGATIVE) Urine Nitrite Negative (NEGATIVE) Urine Bilirubin Negative (NEGATIVE) Urine Urobilinogen Normal (NORMAL) mg/dL Ur Leukocyte Esterase Moderate (NEGATIVE) Urine RBC Not seen (0-5) Urine WBC 0-5 (0-5) Ur Epithelial Cells Rare Amorphous Sediment Not seen Urine Bacteria Not seen Urine Mucus Not seen 12/03/17 12/03/17 Range/Units 09:59 12:32 WBC (4.5-11.0) K/uL RBC (3.30-5.50) M/uL Hgb (12.0-15.0) g/dL Hct (36.0-48.0) % MCV (80-98) fL MCH (27-31) pg MCHC (32-36) % Plt Count (150-400) K/uL Neut % (Auto) (36-66) % Lymph % (Auto) (24-44) % [place] % (Auto) (2-6) % Eos % (Auto) (2-4) % Baso % (Auto) (0-1) % Sodium (140-148) mmol/L Potassium (3.6-5.2) mmol/L Chloride (100-108) mmol/L Carbon Dioxide (21-32) mmol/L Anion Gap (5.0-14.0) mmol/L BUN (7-18) mg/dL Creatinine (0.6-1.0) mg/dL Est Cr Clr Drug Dosing mL/min Estimated GFR (MDRD) (>60) Glucose (74-106) mg/dL Calcium (8.5-10.1) mg/dL Total Bilirubin (0.2-1.0) mg/dL AST (15-37) U/L ALT (12-78) U/L Alkaline Phosphatase (46-116) U/L Troponin I < 0.017 (0.000-0.056) ng/mL C-Reactive Protein 2.38 H (0.0-0.3) mg/dL Total Protein (6.4-8.2) g/dL Albumin (3.4-5.0) g/dL Globulin (2.3-3.5) g/dL Albumin/Globulin Ratio (1.2-2.2) Urine Color Urine Appearance Urine pH (4.5-8.0) Ur Specific [place] (1.008-1.030) Urine Protein (NEGATIVE) mg/dL Urine Glucose (UA) (NEGATIVE) mg/dL Urine Ketones (NEGATIVE) mg/dL Urine Occult Blood (NEGATIVE) Urine Nitrite (NEGATIVE) Urine Bilirubin (NEGATIVE) Urine Urobilinogen (NORMAL) mg/dL Ur Leukocyte Esterase (NEGATIVE) Urine RBC (0-5) Urine WBC (0-5) Ur Epithelial Cells Amorphous Sediment Urine Bacteria Urine Mucus Meds: Medications Generic Name Dose Route Start Last Admin Trade Name Freq PRN Reason Stop Dose Admin Sodium Chloride 1,000 mls @ 999 mls/hr 12/03/17 09:00 12/03/17 09:16 Normal Saline IV 999 mls/hr ASDIRECTED LUC Administration Sodium Chloride 77 mls @ 3 mls/sec 12/03/17 10:30 12/03/17 10:29 Normal Saline IV 12/03/17 23:00 3 mls/sec ASDIRECTED LUC Administration Iopamidol 100 ml 12/03/17 10:17 12/03/17 10:29 Isovue-300 (61%) IV 12/04/17 10:18 100 ml . DIRECTED PRN Administration RADIOLOGY EXAM Discontinued Medications Generic Name Dose Route Start Last Admin Trade Name Fresonya PRN Reason Stop Dose Admin Acetaminophen/Codeine Phosphate 2 tab 12/03/17 12:32 12/03/17 12:51 Tylenol With Codeine No.3 300mg/30mg PO 12/03/17 12:33 2 tab ONETIME ONE Administration Al Hydroxide/Mg Hydroxide 15 0 ml 12/03/17 11:40 12/03/17 11:51 ml/ Lidocaine HCl 15 ml PO 12/03/17 11:41 15 ml ONETIME ONE Administration Pantoprazole Sodium 40 mg 12/03/17 11:44 12/03/17 11:51 Protonix Iv IVPUSH 12/03/17 11:45 40 mg ONETIME ONE Administration - Re-Assessments/Exams Free Text/Narrative Re-Assessment/Exam: 12/03/17 13:14 pt had a cat scan of the abdoman which did not show acute problems. She has the persistent pain. She has normal lab except her crp is elevated. She just had a colonoscopy. Departure - Departure Time of Disposition: 13:16 Disposition: Home, Self-Care 01 Condition: Fair Clinical Impression: Upper abdominal pain - Discharge Information Referrals: Nigel Mulligan MD [Primary Care Provider] - Forms: ED Department Discharge Care Plan Goals: mom for the constipation, --2 0z. rtc if persistent pain and she should be gastroscoped, increase the prilosec for 3 days to bid, tylenol 3 1 tab q6h prn for pain. # 10c - My Orders Last 24 Hours: My Active Orders 12/03/17 08:58 Abdomen Series w Chest 1V [CR] Urgent 12/03/17 09:00 Sodium Chloride 0.9% [Normal Saline] 1,000 ml IV ASDIRECTED 12/03/17 09:01 UA W/MICROSCOPIC [URIN] Urgent 12/03/17 10:06 Abdomen Pelvis w Cont [CT] Stat 12/03/17 10:17 Iopamidol [Isovue-300 (61%)] 100 ml IV . DIRECTED PRN 12/03/17 10:30 Sodium Chloride 0.9% [Normal Saline] 77 ml IV ASDIRECTED 12/03/17 12:32 EKG Documentation Completion [RC] ASDIRECTED EKG 12 Lead [EK] Routine - Assessment/Plan Last 24 Hours: My Active Orders 12/03/17 08:58 Abdomen Series w Chest 1V [CR] Urgent 12/03/17 09:00 Sodium Chloride 0.9% [Normal Saline] 1,000 ml IV ASDIRECTED 12/03/17 09:01 UA W/MICROSCOPIC [URIN] Urgent 12/03/17 10:06 Abdomen Pelvis w Cont [CT] Stat 12/03/17 10:17 Iopamidol [Isovue-300 (61%)] 100 ml IV . DIRECTED PRN 12/03/17 10:30 Sodium Chloride 0.9% [Normal Saline] 77 ml IV ASDIRECTED 12/03/17 12:32 EKG Documentation Completion [RC] ASDIRECTED EKG 12 Lead [EK] Routine
[2017-12-03] MEDS ORDERED: Iopamidol 612 MG/ML 100 ML Bottle IV PRN (10:17)
[2017-12-03] MEDS ORDERED: Alum Hydrox/Mag Hydrox/Simeth 15 ML, Lidocaine 2% 15 ML PO ONE ×2 (11:40)
[2017-12-03] MEDS ORDERED: Pantoprazole 40 MG Vial IVPUSH ONE (11:44)
[2017-12-03] MEDS ORDERED: Acetaminophen/Codeine 300-30 MG Tab PO ONE (12:32)
--- NOTE | 2017-12-05 09:08 | CR ---
Abdomen Series w Chest 1V CLINICAL HISTORY: Abdominal pain post colonoscopy FINDINGS: Small intestinal configuration is nonacute. The there is some gaseous distention of colon. There is moderate retained stool in the right. No free air is seen. Lung kessler are clear IMPRESSION: Mild gaseous distention of colon with moderate retained stool in the right Nonacute small intestinal gas pattern
== END 2017-12-03 13:46 | disposition home or self-care (01) ==
LOC: JP.ED 07:56
DX: R10.13 Epigastric pain (principal); R10.10 Upper abdominal pain, unspecified; I10 Essential (primary) hypertension; K21.9 Gastro-esophageal reflux disease without esophagitis; E03.9 Hypothyroidism, unspecified; Z88.8 Allergy status to other drugs, medicaments and biological substances; Z79.82 Long term (current) use of aspirin; Z79.899 Other long term (current) drug therapy
CPT/HCPCS: 36415; 74022; 74177; 80053; 81001; 84484; 85025; 86140; 93005; 96361; 96374; 99285; A9270; C9113; J7030; Q9967

== ENCOUNTER 2018-07-17 16:47 | Emergency (ER) | payer MEDICAID, MEDICARE ==
[2018-07-17] MEDS ORDERED: Acetaminophen/Codeine 300-30 MG Tab PO ONE (17:19)
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
[2018-07-17 18:29] VITALS: BP 163/83
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
== END 2018-07-17 20:08 | disposition home or self-care (01) ==
LOC: JP.ED 16:47
DX: M54.5 Low back pain (principal); I10 Essential (primary) hypertension; F41.9 Anxiety disorder, unspecified; E03.9 Hypothyroidism, unspecified; K21.9 Gastro-esophageal reflux disease without esophagitis; Z79.82 Long term (current) use of aspirin; Z87.891 Personal history of nicotine dependence; Z79.899 Other long term (current) drug therapy; Z88.8 Allergy status to other drugs, medicaments and biological substances; V89.2XXA Person injured in unspecified motor-vehicle accident, traffic, initial encounter
CPT/HCPCS: 72040; 72040-26; 72110; 72110-26; 72131; 81001; 99283; 99285-25; A9270-GY

== ENCOUNTER 2018-08-10 05:08 | Emergency (ER) | payer MEDICARE, MEDICAID ==
[2018-08-10 05:13] VITALS: BP 119/59
[2018-08-10] MEDS ORDERED: Sodium Chloride 0.9% 1,000 ML IV SCH ×2 (05:45→07:00)
--- NOTE | 2018-08-10 05:52 | EDM.PDOC ---
<Malika Grissom - Last Filed: 08/10/18 06:44> ED HPI GENERAL MEDICAL PROBLEM - General Chief Complaint: General Stated Complaint: LIGHTHEADED Time Seen by Provider: 08/10/18 05:46 Source of Information: Reports: Patient History Limitations: Reports: No Limitations - History of Present Illness INITIAL COMMENTS - FREE TEXT/NARRATIVE: pt has been feeling fatiqued and coughing alot for about 1 week. She does not feel like she is running a fever. Her cough is nonproductive. She is very liteheaded today. Onset: Gradual Duration: Hour(s): Location: Reports: Head, Chest, Other (pt is coughing alot. ) Associated Symptoms: Reports: Cough, Loss of Appetite, Weakness Chest Pain Score (Numeric/FACES): 3 - Related Data Allergies Allergy/AdvReac Type Severity Reaction Status Date / Time metaxalone Allergy Cannot Verified 08/10/18 05:16 Remember ether AdvReac Nausea Verified 08/10/18 05:16 metronidazole AdvReac Tachycardia Verified 08/10/18 05:16 Home Meds: Home Meds Aspirin [Adult Low Dose Aspirin EC] 81 mg PO DAILY 01/24/14 [History] Montelukast Sodium 10 mg PO BEDTIME 01/24/14 [History] Losartan [Cozaar] 100 mg PO DAILY 03/27/16 [History] Metoprolol Succinate [Toprol XL] 50 mg PO DAILY 06/15/16 [History] Acetaminophen [Tylenol] 650 mg PO Q4H tablet 08/27/16 [Rx] Hydrochlorothiazide 25 mg PO DAILY tablet 08/27/16 [Rx] Ibuprofen [Motrin] 600 mg PO Q6H PRN #0 tablet 08/27/16 [Rx] Levothyroxine [Synthroid] 50 mcg PO ACBREAKFAST tablet 08/27/16 [Rx] Omeprazole 20 mg PO DAILY 12/01/17 [History] Past Medical History HEENT History: Reports: Impaired Vision Other HEENT History: wears reading glasses Cardiovascular History: Reports: Hypertension Gastrointestinal History: Reports: Bowel Obstruction, GERD, Hiatal Hernia Genitourinary History: Reports: UTI, Recurrent 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, Musculoskeletal History: Reports: Back Pain, Chronic Neurological History: Reports: None Psychiatric History: Reports: Anxiety Endocrine/Metabolic History: Reports: Hypothyroidism Dermatologic History: Reports: None - Infectious Disease History Infectious Disease History: Reports: None - Past Surgical History Head Surgeries/Procedures: Reports: None HEENT Surgical History: Reports: Other (See Below) Other HEENT Surgeries/Procedures: wisdom teeth GI Surgical History: Reports: Colonoscopy, EGD, Zeb Fundoplication Female Surgical History: Reports: Hysterectomy, Oophorectomy, Tubal Ligation Endocrine Surgical History: Reports: Thyroidectomy Other Endocrine Surgeries/Procedures: partial Neurological Surgical History: Reports: Spinal Fusion Musculoskeletal Surgical History: Reports: Carpal Tunnel Dermatological Surgical History: Reports: Other (See Below) Social & Family History - Family History Family Medical History: Noncontributory : Reports: None Musculoskeletal: Reports: None - Tobacco Use Smoking Status *Q: Former Smoker Used Tobacco, but Quit: Yes Month/Year Tobacco Last Used: 1984 - Caffeine Use Caffeine Use: Reports: None Other Caffeine Use: 2 cups coffee daily - Recreational Drug Use Recreational Drug Use: No ED ROS GENERAL - Review of Systems Review Of Systems: See Below Constitutional: Reports: Malaise, Weakness, Decreased Appetite HEENT: Reports: No Symptoms Respiratory: Reports: Wheezing, Cough Cardiovascular: Reports: Lightheadedness Endocrine: Reports: No Symptoms GI/Abdominal: Reports: No Symptoms : Reports: No Symptoms Musculoskeletal: Reports: No Symptoms Skin: Reports: No Symptoms ED EXAM, GENERAL - Physical Exam Exam: See Below Free Text/Narrative:: pt feels like she is going to pass out when she stands up. She has been coughing markedly. Exam Limited By: No Limitations General Appearance: Alert, Mild Distress, Other (pupils equal and reactive) Ears: Normal TMs Nose: Normal Inspection Throat/Mouth: Normal Inspection Head: Atraumatic Neck: Normal Inspection Respiratory/Chest: No Respiratory Distress Cardiovascular: Regular Rate, Rhythm GI/Abdominal: Soft, Tender, Other (mild tenderness in the rt upper abdoman. She has not had a bm for 1 week. She does have pattern of going close to a week before she has a bm. ) (Female) Exam: Deferred Rectal (Female) Exam: Deferred Back Exam: Normal Inspection Extremities: Normal Inspection Neurological: Alert, Oriented, Normal Cognition Course - Vital Signs Last Recorded V/S: Last Vital Signs Temp 98.0 F 08/10/18 05:12 Pulse 65 08/10/18 05:12 Resp 16 08/10/18 05:12 BP 119/59 L 08/10/18 05:12 Pulse Ox 92 L 08/10/18 05:12 Orthostatic Blood Pressure [ 125/80 Standing] Orthostatic Blood Pressure [ 126/84 Sitting] Orthostatic Blood Pressure [ 119/59 Supine] - Orders/Labs/Meds Orders: Active Orders 24 hr Category Date Time Status Orthostatic Vital Signs [RC] ASDIRECTED Care 08/10/18 05:28 Active Labs: Laboratory Tests 08/10/18 08/10/18 08/10/18 Range/Units 05:43 05:55 05:55 WBC 2.6 L (4.5-11.0) K/uL RBC 4.29 (3.30-5.50) M/uL Hgb 11.9 L (12.0-15.0) g/dL Hct 36.9 (36.0-48.0) % MCV 86 (80-98) fL MCH 28 (27-31) pg MCHC 32 (32-36) % Plt Count 127 L (150-400) K/uL Neut % (Auto) 66 (36-66) % Lymph % (Auto) 23 L (24-44) % [place] % (Auto) 11 H (2-6) % Eos % (Auto) 0 L (2-4) % Baso % (Auto) 0 (0-1) % Sodium 136 L (140-148) mmol/L Potassium 3.5 L (3.6-5.2) mmol/L Chloride 99 L (100-108) mmol/L Carbon Dioxide 27 (21-32) mmol/L Anion Gap 13.5 (5.0-14.0) mmol/L BUN 22 H D (7-18) mg/dL Creatinine 1.1 H (0.6-1.0) mg/dL Est Cr Clr Drug Dosing 43.55 mL/min Estimated GFR (MDRD) 51 L (>60) Glucose 130 H (74-106) mg/dL Calcium 8.5 (8.5-10.1) mg/dL Total Bilirubin 0.3 D (0.2-1.0) mg/dL AST 199 H D (15-37) U/L ALT 72 D (12-78) U/L Alkaline Phosphatase 158 H D (46-116) U/L Total Protein 6.8 (6.4-8.2) g/dL Albumin 3.1 L (3.4-5.0) g/dL Globulin 3.7 H (2.3-3.5) g/dL Albumin/Globulin Ratio 0.8 L (1.2-2.2) Lipase 176 (73-393) U/L TSH, Ultra Sensitive (0.358-3.740) uIU/mL Urine Color Urine Appearance Urine pH (4.5-8.0) Ur Specific [place] (1.008-1.030) Urine Protein (NEGATIVE) mg/dL Urine Glucose (UA) (NEGATIVE) mg/dL Urine Ketones (NEGATIVE) mg/dL Urine Occult Blood (NEGATIVE) Urine Nitrite (NEGATIVE) Urine Bilirubin (NEGATIVE) Urine Urobilinogen (NORMAL) mg/dL Ur Leukocyte Esterase (NEGATIVE) Urine RBC (0-5) Urine WBC (0-5) Ur Epithelial Cells Amorphous Sediment Urine Bacteria Urine Mucus 08/10/18 08/10/18 Range/Units 06:15 06:40 WBC (4.5-11.0) K/uL RBC (3.30-5.50) M/uL Hgb (12.0-15.0) g/dL Hct (36.0-48.0) % MCV (80-98) fL MCH (27-31) pg MCHC (32-36) % Plt Count (150-400) K/uL Neut % (Auto) (36-66) % Lymph % (Auto) (24-44) % [place] % (Auto) (2-6) % Eos % (Auto) (2-4) % Baso % (Auto) (0-1) % Sodium (140-148) mmol/L Potassium (3.6-5.2) mmol/L Chloride (100-108) mmol/L Carbon Dioxide (21-32) mmol/L Anion Gap (5.0-14.0) mmol/L BUN (7-18) mg/dL Creatinine (0.6-1.0) mg/dL Est Cr Clr Drug Dosing mL/min Estimated GFR (MDRD) (>60) Glucose (74-106) mg/dL Calcium (8.5-10.1) mg/dL Total Bilirubin (0.2-1.0) mg/dL AST (15-37) U/L ALT (12-78) U/L Alkaline Phosphatase (46-116) U/L Total Protein (6.4-8.2) g/dL Albumin (3.4-5.0) g/dL Globulin (2.3-3.5) g/dL Albumin/Globulin Ratio (1.2-2.2) Lipase (73-393) U/L TSH, Ultra Sensitive 1.556 (0.358-3.740) uIU/mL Urine Color Yellow Urine Appearance Clear Urine pH 5.0 (4.5-8.0) Ur Specific [place] 1.025 (1.008-1.030) Urine Protein Negative (NEGATIVE) mg/dL Urine Glucose (UA) Normal (NEGATIVE) mg/dL Urine Ketones Negative (NEGATIVE) mg/dL Urine Occult Blood Negative (NEGATIVE) Urine Nitrite Negative (NEGATIVE) Urine Bilirubin Negative (NEGATIVE) Urine Urobilinogen Normal (NORMAL) mg/dL Ur Leukocyte Esterase Negative (NEGATIVE) Urine RBC 0-5 (0-5) Urine WBC 0-5 (0-5) Ur Epithelial Cells Few Amorphous Sediment Not seen Urine Bacteria Few Urine Mucus Not seen Meds: Medications Discontinued Medications Generic Name Dose Route Start Last Admin Trade Name Freq PRN Reason Stop Dose Admin Sodium Chloride 1,000 mls @ 999 mls/hr 08/10/18 05:45 08/10/18 06:06 Normal Saline IV 999 mls/hr ASDIRECTED [facility] Administration Sodium Chloride 1,000 mls @ 500 mls/hr 08/10/18 07:00 08/10/18 07:03 Normal Saline IV 500 mls/hr ASDIRECTED [facility] Administration - Re-Assessments/Exams Free Text/Narrative Re-Assessment/Exam: 08/10/18 06:45 Pt was found to have a positive infl A. Her liver enzymes are elevated. Her wbc is low and her platlets are on the low side. She states that she just feels so fatiqued. She does feel liteheaded or like she is going to pass out when ever she trys to move around. Departure - Departure Disposition: Home, Self-Care 01 Clinical Impression: Influenza A, Dehydration, moderate - Discharge Information Instructions: Influenza, Adult, [id number] Referrals: PCP,None [Primary Care Provider] - Forms: ED Department Discharge Care Plan Goals: Rest, fluids, increase activity as tolerated. Tylenol or ibuprofen will help body aches and headache as well as fever. Return if worsening such as difficulty breathing or persistent vomiting. <Rahat Floyd - Last Filed: 08/10/18 08:41> Course - Re-Assessments/Exams Free Text/Narrative Re-Assessment/Exam: 08/10/18 07:55 Care of patient was assumed from Dr. Grissom. Pending a gallbladder ultrasound and IV fluids. Gallbladder ultrasound is nonspecific other than a fatty liver and significant bowel air. Gallbladder was absent. Patient felt improved, orthostatics were stable so she was discharged and was told to stay home from work for the rest of the week. She can return anytime if worsening. Departure - Departure Time of Disposition: 08:12 Condition: Good
--- NOTE | 2018-08-10 06:13 | CRLCR ---
INDICATION: Cough. TECHNIQUE: AP portable chest x-ray. FINDINGS: Heart size upper limits normal. Shallow inspiration. No focal infiltrate or consolidation either lung. Surgical clips right mid abdomen. Chest otherwise negative. Dictated by Arsh Sanchez MD @ Aug 10 2018 6:11AM Signed by Dr. Arsh Sanchez @ Aug 10 2018 6:12AM
--- NOTE | 2018-08-10 08:00 | CRLUS ---
INDICATION: Upper abdominal pain. Elevated liver enzymes. TECHNIQUE: Abdominal limited ultrasound. COMPARISON: CT head 12/03/2017. FINDINGS: Moderate diffuse increased echogenicity of the hepatic parenchyma typical of diffuse fatty infiltration of the liver more prominent than on prior CT. Lobulated solid hypoechoic mass measuring 4.0 x 3.3 x 4.0 cm correlates with the mass on recent CT in the right hepatic lobe and is typical of a hemangioma given its appearance on CT. The pancreas is not well visualized. Gallbladder surgically absent. Proximal abdominal inferior vena cava is patent with flow in the proper direction. The right kidney measures 9.7 cm and is negative for hydronephrosis. Common bile duct upper limits normal at 6 mm. Main portal vein is patent with hepatopetal flow. Remainder negative. IMPRESSION: 1. Gallbladder surgically absent with common bile duct upper limits normal. 2. Moderate diffuse fatty infiltration of liver. 3. Moderate-sized solid mass right hepatic lobe has typical features of hemangioma on prior CT. Other findings as above. Dictated by Arsh Sanchez MD @ Aug 10 2018 7:56AM Signed by Dr. Arsh Sanchez @ Aug 10 2018 7:59AM
== END 2018-08-10 08:12 | disposition home or self-care (01) ==
LOC: JP.ED 05:08
DX: J10.1 Influenza due to other identified influenza virus with other respiratory manifestations (principal); E86.0 Dehydration; I10 Essential (primary) hypertension; R74.8 Abnormal levels of other serum enzymes; E03.9 Hypothyroidism, unspecified; F41.9 Anxiety disorder, unspecified; Z87.891 Personal history of nicotine dependence; Z88.8 Allergy status to other drugs, medicaments and biological substances; Z79.82 Long term (current) use of aspirin; Z79.899 Other long term (current) drug therapy
CPT/HCPCS: 36415; 71045; 76705; 80053; 81001; 83690; 84443; 85025; 87804; 96360; 96361; 99285; J7030; 99284

== ENCOUNTER 2018-08-12 06:23 | Observation (INO) | payer MEDICARE, MEDICAID ==
[2018-08-12] MEDS ORDERED: Sodium Chloride 0.9% 1,000 ML IV SCH (07:30)
[2018-08-12] MEDS ORDERED: Albuterol 0.083% 2.5 MG/3 ML Neb Soln NEB ONE (07:51)
[2018-08-12] MEDS ORDERED: Benzonatate 100 MG Cap PO ONE (07:52)
--- NOTE | 2018-08-12 07:53 | EDM.PDOC ---
ED HPI GENERAL MEDICAL PROBLEM - General Chief Complaint: Respiratory Problem Stated Complaint: INFLUENZA A Time Seen by Provider: 08/12/18 07:41 Source of Information: Reports: Patient History Limitations: Reports: No Limitations - History of Present Illness INITIAL COMMENTS - FREE TEXT/NARRATIVE: pt was seen early Tuesday am and found to have influ A. She has been coughing alot and feels like she is not improving. She is very fatiqued. When she was here Tuesday am she was hydrated and she felt better when she left. Onset: Gradual, Other (pt has been sick for about 1 week. ) Duration: Hour(s):, Getting Worse Location: Reports: Chest Associated Symptoms: Reports: Cough, Malaise, Weakness, Other (poor oral intake. ) Treatments PROGRAM DIR: Reports: Other (see below) Other Treatments PROGRAM DIR: robitussin ac - Related Data Allergies Allergy/AdvReac Type Severity Reaction Status Date / Time metaxalone Allergy Cannot Verified 08/10/18 05:16 Remember ether AdvReac Nausea Verified 08/10/18 05:16 metronidazole AdvReac Tachycardia Verified 08/10/18 05:16 Home Meds: Home Meds Aspirin [Adult Low Dose Aspirin EC] 81 mg PO DAILY 01/24/14 [History] Montelukast Sodium 10 mg PO BEDTIME 01/24/14 [History] Losartan [Cozaar] 100 mg PO DAILY 03/27/16 [History] Metoprolol Succinate [Toprol XL] 50 mg PO DAILY 06/15/16 [History] Acetaminophen [Tylenol] 650 mg PO Q4H tablet 08/27/16 [Rx] Hydrochlorothiazide 25 mg PO DAILY tablet 08/27/16 [Rx] Ibuprofen [Motrin] 600 mg PO Q6H PRN #0 tablet 08/27/16 [Rx] Levothyroxine [Synthroid] 50 mcg PO ACBREAKFAST tablet 08/27/16 [Rx] Omeprazole 20 mg PO DAILY 12/01/17 [History] Past Medical History HEENT History: Reports: Impaired Vision Other HEENT History: wears reading glasses Cardiovascular History: Reports: Hypertension Gastrointestinal History: Reports: Bowel Obstruction, GERD, Hiatal Hernia Genitourinary History: Reports: UTI, Recurrent 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: 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, Musculoskeletal History: Reports: Back Pain, Chronic Neurological History: Reports: None Psychiatric History: Reports: Anxiety Endocrine/Metabolic History: Reports: Hypothyroidism Dermatologic History: Reports: None - Infectious Disease History Infectious Disease History: Reports: Chicken Pox - Past Surgical History Head Surgeries/Procedures: Reports: None HEENT Surgical History: Reports: Other (See Below) Other HEENT Surgeries/Procedures: wisdom teeth GI Surgical History: Reports: Colonoscopy, EGD, Zeb Fundoplication Female Surgical History: Reports: Hysterectomy, Oophorectomy, Tubal Ligation Endocrine Surgical History: Reports: Thyroidectomy Other Endocrine Surgeries/Procedures: partial Neurological Surgical History: Reports: Spinal Fusion Musculoskeletal Surgical History: Reports: Carpal Tunnel Dermatological Surgical History: Reports: Other (See Below) Social & Family History - Family History Family Medical History: Noncontributory : Reports: None Musculoskeletal: Reports: None - Tobacco Use Smoking Status *Q: Never Smoker Second Hand Smoke Exposure: No - Caffeine Use Caffeine Use: Reports: Coffee Other Caffeine Use: 2 cups coffee daily - Recreational Drug Use Recreational Drug Use: No ED ROS GENERAL - Review of Systems Review Of Systems: See Below Constitutional: Reports: Chills, Malaise, Weakness, Other (pt feels like she is going to pass out after she has the coughing episodes. She is wheezy at times. She does not have a high temp. ) HEENT: Reports: No Symptoms Respiratory: Reports: Shortness of Breath, Wheezing, Cough, Other ( Pt is having severe coughing episodes. ) Cardiovascular: Reports: Dyspnea on Exertion, Other (pt has the sensation that she is going to pass out after she has the coughing episodes. ) Endocrine: Reports: No Symptoms GI/Abdominal: Reports: Constipation, Other (pt has not had a bm for over a week. ) : Reports: No Symptoms Musculoskeletal: Reports: Other (Pt has alot of muscle weakness and is very weak. ) Skin: Reports: No Symptoms Neurological: Reports: Other (pt has the sensation that she is going to pass out when she has the bad coughing episodes. ) Psychiatric: Reports: Anxiety ED EXAM, GENERAL - Physical Exam Exam: See Below Free Text/Narrative:: Pt arrived looking very pale and feeling like she is going to pass out after she has the coughing episodes. Exam Limited By: No Limitations General Appearance: Alert, Moderate Distress Ears: Normal TMs Nose: Normal Inspection Throat/Mouth: Normal Inspection Head: Atraumatic Neck: Normal Inspection Respiratory/Chest: Decreased Breath Sounds, Wheezing Cardiovascular: Regular Rate, Rhythm, Tachycardia GI/Abdominal: Soft, Other (pt has not had a bm for over a week. She is feeling like her abdoman is distended. ) Rectal (Female) Exam: Deferred Back Exam: Normal Inspection Extremities: Normal Inspection Neurological: Alert, Oriented, Normal Cognition Psychiatric: Depressed Mood Course - Vital Signs Last Recorded V/S: Last Vital Signs Temp 36.6 C 08/12/18 06:51 Pulse 74 08/12/18 06:51 Resp 14 08/12/18 06:51 BP 130/83 08/12/18 06:51 Pulse Ox 95 08/12/18 06:51 - Orders/Labs/Meds Orders: Active Orders 24 hr Category Date Time Status RT Aerosol Therapy [RC] ASDIRECTED Care 08/12/18 07:51 Active Sodium Chloride 0.9% [Normal Saline] 1,000 ml Med 08/12/18 07:30 Active IV ASDIRECTED Medication Orders Sodium Chloride (Normal Saline) 1,000 mls @ 999 mls/hr IV ASDIRECTED LUC Last Admin: 08/12/18 07:30 Dose: 999 mls/hr Labs: Laboratory Tests 08/12/18 08/12/18 08/12/18 Range/Units 07:19 07:19 07:22 WBC 2.9 L (4.5-11.0) K/uL RBC 4.40 (3.30-5.50) M/uL Hgb 12.4 (12.0-15.0) g/dL Hct 37.6 (36.0-48.0) % MCV 86 (80-98) fL MCH 28 (27-31) pg MCHC 33 (32-36) % Plt Count 148 L (150-400) K/uL Neut % (Auto) 44 (36-66) % Lymph % (Auto) 44 (24-44) % [place] % (Auto) 11 H (2-6) % Eos % (Auto) 1 L (2-4) % Baso % (Auto) 0 (0-1) % Puncture Site Lt radial ABG pH 7.460 H (7.350-7.450) ABG pCO2 35.9 (35.0-42.0) mmHg ABG pO2 39.5 L* (75.0-100.0) mmHg ABG HCO3 25.2 (22.0-26.0) mmol/L ABG Total CO2 22.7 (21.0-25.0) mmol/L ABG O2 Saturation 73.3 L (95.0-98.0) % ABG O2 Content 12.2 L (15.0-23.0) %vol ABG Base Excess 2.0 mm/L ABG Hemoglobin 12.1 (12.0-16.0) g/dL ABG Oxyhemoglobin 71.8 % ABG Carboxyhemoglobin 0.9 (0.0-1.6) % ABG Methemoglobin 1.1 % Leobardo Test Passed O2 Delivery Device Room air Sodium 141 (140-148) mmol/L Potassium 3.6 (3.6-5.2) mmol/L Chloride 101 (100-108) mmol/L Carbon Dioxide 27 (21-32) mmol/L Anion Gap 13.0 (5.0-14.0) mmol/L BUN 14 (7-18) mg/dL Creatinine 1.0 (0.6-1.0) mg/dL Est Cr Clr Drug Dosing 47.49 mL/min Estimated GFR (MDRD) 57 L (>60) Glucose 98 (74-106) mg/dL Calcium 8.4 L (8.5-10.1) mg/dL Total Bilirubin 0.3 (0.2-1.0) mg/dL AST 59 H (15-37) U/L ALT 40 (12-78) U/L Alkaline Phosphatase 125 H (46-116) U/L Total Protein 7.2 (6.4-8.2) g/dL Albumin 3.3 L (3.4-5.0) g/dL Globulin 3.9 H (2.3-3.5) g/dL Albumin/Globulin Ratio 0.9 L (1.2-2.2) Meds: Medications Generic Name Dose Route Start Last Admin Trade Name Freq PRN Reason Stop Dose Admin Sodium Chloride 1,000 mls @ 999 mls/hr 08/12/18 07:30 08/12/18 07:30 Normal Saline IV 999 mls/hr ASDIRECTED LUC Administration Discontinued Medications Generic Name Dose Route Start Last Admin Trade Name Freq PRN Reason Stop Dose Admin Albuterol 2.5 mg 08/12/18 07:51 08/12/18 07:58 Proventil Neb Soln NEB 08/12/18 07:52 2.5 mg ONETIME ONE Administration Benzonatate 200 mg 08/12/18 07:52 08/12/18 07:58 Tessalon Perles PO 08/12/18 07:53 200 mg ONETIME ONE Administration Bisacodyl 10 mg 08/12/18 07:59 08/12/18 08:10 Dulcolax RECTAL 08/12/18 08:00 10 mg ONETIME ONE Administration - Re-Assessments/Exams Free Text/Narrative Re-Assessment/Exam: 08/12/18 08:00 pt did have a low O2 on the blood gases. This must have been mixed with venous. On room air she is sating at 95 %. She is feeling very weak and has the sensation that she is going to pass out particularly after she has a bad coughing episode. Departure - Departure Time of Disposition: 08:33 Disposition: Admitted As Inpatient 64 Condition: Fair Clinical Impression: Influenza A, Dehydration, Near syncope - Discharge Information Referrals: Nigel Mulligan MD [Primary Care Provider] - Forms: ED Department Discharge Care Plan Goals: admit to Dr Espino. - My Orders Last 24 Hours: My Active Orders 08/12/18 07:30 Sodium Chloride 0.9% [Normal Saline] 1,000 ml IV ASDIRECTED 08/12/18 07:51 RT Aerosol Therapy [RC] ASDIRECTED - Assessment/Plan Last 24 Hours: My Active Orders 08/12/18 07:30 Sodium Chloride 0.9% [Normal Saline] 1,000 ml IV ASDIRECTED 08/12/18 07:51 RT Aerosol Therapy [RC] ASDIRECTED
[2018-08-12] MEDS ORDERED: Bisacodyl 10 MG Supp RECTAL ONE (07:59)
--- NOTE | 2018-08-12 07:59 | CRLCR ---
INDICATION: INFLUENZA A SOB INDICATION: Influenza A, shortness of breath. TECHNIQUE: Chest 1 view. COMPARISON: 08/10/2018. FINDINGS: Cardiovascular and mediastinum: Heart size and vasculature are normal in caliber and appearance. Mediastinum is within normal limits. Lungs and pleural space: Lungs are clear. No sign of infiltrate or mass. No sign of pleural effusion. No pneumothorax. Bones and soft tissues: Surgical clips in the right upper quadrant, consistent with prior cholecystectomy. IMPRESSION: There is no acute airspace disease or significant change. Dictated by Ezra Flores MD @ 08/12/2018 7:59:01 AM Dictated by: Ezra Flores MD @ 08/12/2018 07:59:06 (Electronically Signed)
[2018-08-12] MEDS ORDERED: methylPREDNISolone Sodium Succinate 125 MG/2 ML SDV IVPUSH ONE (08:43)
--- NOTE | 2018-08-12 08:47 | PCM.HP ---
H&P History of Present Illness - General Date of Service: 08/12/18 Admit Problem/Dx: Admission Diagnosis/Problem Admission Diagnosis/Problem Weakness Source of Information: Patient, Old Records, Provider, RN Notes Reviewed History Limitations: Reports: No Limitations - History of Present Illness Initial Comments - Free Text/Narative: Ms. Hussein is a 57-year-old woman who is admitted through the emergency department to observation status for management of cough and symptoms related to influenza A infection. She's not felt well over the past several days with cough shortness of breath myalgias weakness and fatigue. Originally she did have temperature elevations they seem to be improved and her myalgias have also essentially resolved. Shortness of breath is better but she continues to experience significant cough which is nonproductive. Evaluation in the emergency department shows no evidence of infiltrate on chest x-ray with a low white blood cell count. Laboratory tests are otherwise stable. She has had episodes of lightheadedness and a few syncopal episodes associated with prolonged coughing episodes. She has tried Tessalon Perles at home as well as Robitussin-AC with no significant benefit. Oral intake remains poor and she feels very weak, having difficulty transferring and ambulating. - Related Data Allergies/Adverse Reactions: Allergies Allergy/AdvReac Type Severity Reaction Status Date / Time metaxalone Allergy Cannot Verified 08/10/18 05:16 Remember ether AdvReac Nausea Verified 08/10/18 05:16 metronidazole AdvReac Tachycardia Verified 08/10/18 05:16 Home Medications: Home Meds Aspirin [Adult Low Dose Aspirin EC] 81 mg PO DAILY 01/24/14 [History] Montelukast Sodium 10 mg PO BEDTIME 01/24/14 [History] Losartan [Cozaar] 100 mg PO DAILY 03/27/16 [History] Metoprolol Succinate [Toprol XL] 50 mg PO DAILY 06/15/16 [History] Acetaminophen [Tylenol] 650 mg PO Q4H tablet 08/27/16 [Rx] Hydrochlorothiazide 25 mg PO DAILY tablet 08/27/16 [Rx] Ibuprofen [Motrin] 600 mg PO Q6H PRN #0 tablet 08/27/16 [Rx] Levothyroxine [Synthroid] 50 mcg PO ACBREAKFAST tablet 08/27/16 [Rx] Omeprazole 20 mg PO DAILY 06/14/18 [History] Past Medical History HEENT History: Reports: Impaired Vision Other HEENT History: wears reading glasses Cardiovascular History: Reports: Hypertension Gastrointestinal History: Reports: Bowel Obstruction, GERD, Hiatal Hernia Genitourinary History: Reports: UTI, Recurrent 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: 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, Musculoskeletal History: Reports: Back Pain, Chronic Neurological History: Reports: None Psychiatric History: Reports: Anxiety Endocrine/Metabolic History: Reports: Hypothyroidism Dermatologic History: Reports: None - Infectious Disease History Infectious Disease History: Reports: Chicken Pox - Past Surgical History Head Surgeries/Procedures: Reports: None HEENT Surgical History: Reports: Other (See Below) Other HEENT Surgeries/Procedures: wisdom teeth GI Surgical History: Reports: Colonoscopy, EGD, Zeb Fundoplication Female Surgical History: Reports: Hysterectomy, Oophorectomy, Tubal Ligation Endocrine Surgical History: Reports: Thyroidectomy Other Endocrine Surgeries/Procedures: partial Neurological Surgical History: Reports: Spinal Fusion Musculoskeletal Surgical History: Reports: Carpal Tunnel Dermatological Surgical History: Reports: Other (See Below) Social & Family History - Family History Family Medical History: Noncontributory : Reports: None Musculoskeletal: Reports: None - Tobacco Use Smoking Status *Q: Never Smoker Second Hand Smoke Exposure: No - Caffeine Use Caffeine Use: Reports: Coffee Other Caffeine Use: 2 cups coffee daily - Recreational Drug Use Recreational Drug Use: No H&P Review of Systems - Review of Systems: Review Of Systems: See Below General: Reports: Weakness, Fatigue, Decreased Appetite. Denies: Fever, Chills HEENT: Reports: No Symptoms Pulmonary: Reports: Shortness of Breath, Cough. Denies: Wheezing, Pleuritic Chest Pain, Sputum, Hemoptysis Cardiovascular: Reports: Dyspnea on Exertion, Lightheadedness. Denies: Chest Pain, Palpitations, Orthopnea, PND, Edema Gastrointestinal: Reports: No Symptoms Genitourinary: Reports: No Symptoms Musculoskeletal: Reports: No Symptoms Skin: Reports: No Symptoms Psychiatric: Reports: No Symptoms Neurological: Reports: No Symptoms Hematologic/Lymphatic: Reports: No Symptoms Immunologic: Reports: No Symptoms Exam - Exam Exam: See Below - Vital Signs Vital Signs: Last Vital Signs Temp 97.8 F 08/12/18 06:51 Pulse 74 08/12/18 06:51 Resp 14 08/12/18 06:51 BP 130/83 08/12/18 06:51 Pulse Ox 95 08/12/18 06:51 Weight: 150 lb 0.04 oz - Exam Quality Assessment: DVT Prophylaxis General: Alert, Oriented, Cooperative, Mild Distress HEENT: Conjunctiva Clear, Hearing Intact, Normal Nasal Septum, Posterior Pharynx Clear, Pupils Equal. No: Mucosa Moist & [place] Neck: Supple, Trachea Midline, +2 Carotid Pulse wo Bruit Lungs: Clear to Auscultation, Normal Respiratory Effort. No: Rales, Rhonchi, Rub, Wheezing Cardiovascular: Regular Rate, Regular Rhythm, Normal S1, Normal S2. No: Systolic Murmur, Diastolic Murmur GI/Abdominal Exam: Soft, Non-Tender, No Organomegaly, No Distention Back Exam: Normal Inspection, Full Range of Motion Extremities: Non-Tender, No Pedal Edema Skin: Warm, Dry, Intact Neurological: Cranial Nerves Intact, Strength Equal Bilateral, Normal Speech, Normal Tone, Sensation Intact. No: Focal Deficit Neuro Extensive - Mental Status: Alert, Oriented x3, Normal Mood/Affect, Normal Cognition, Memory Intact - Patient Data Lab Results Last 24 hrs: Laboratory Results - last 24 hr 08/12/18 08/12/18 08/12/18 Range/Units 07:19 07:19 07:22 WBC 2.9 L (4.5-11.0) K/uL RBC 4.40 (3.30-5.50) M/uL Hgb 12.4 (12.0-15.0) g/dL Hct 37.6 (36.0-48.0) % MCV 86 (80-98) fL MCH 28 (27-31) pg MCHC 33 (32-36) % Plt Count 148 L (150-400) K/uL Neut % (Auto) 44 (36-66) % Lymph % (Auto) 44 (24-44) % [place] % (Auto) 11 H (2-6) % Eos % (Auto) 1 L (2-4) % Baso % (Auto) 0 (0-1) % Puncture Site Lt radial ABG pH 7.460 H (7.350-7.450) ABG pCO2 35.9 (35.0-42.0) mmHg ABG pO2 39.5 L* (75.0-100.0) mmHg ABG HCO3 25.2 (22.0-26.0) mmol/L ABG Total CO2 22.7 (21.0-25.0) mmol/L ABG O2 Saturation 73.3 L (95.0-98.0) % ABG O2 Content 12.2 L (15.0-23.0) %vol ABG Base Excess 2.0 mm/L ABG Hemoglobin 12.1 (12.0-16.0) g/dL ABG Oxyhemoglobin 71.8 % ABG Carboxyhemoglobin 0.9 (0.0-1.6) % ABG Methemoglobin 1.1 % Leobardo Test Passed O2 Delivery Device Room air Sodium 141 (140-148) mmol/L Potassium 3.6 (3.6-5.2) mmol/L Chloride 101 (100-108) mmol/L Carbon Dioxide 27 (21-32) mmol/L Anion Gap 13.0 (5.0-14.0) mmol/L BUN 14 (7-18) mg/dL Creatinine 1.0 (0.6-1.0) mg/dL Est Cr Clr Drug Dosing 47.49 mL/min Estimated GFR (MDRD) 57 L (>60) Glucose 98 (74-106) mg/dL Calcium 8.4 L (8.5-10.1) mg/dL Total Bilirubin 0.3 (0.2-1.0) mg/dL AST 59 H (15-37) U/L ALT 40 (12-78) U/L Alkaline Phosphatase 125 H (46-116) U/L Total Protein 7.2 (6.4-8.2) g/dL Albumin 3.3 L (3.4-5.0) g/dL Globulin 3.9 H (2.3-3.5) g/dL Albumin/Globulin Ratio 0.9 L (1.2-2.2) Result Diagrams: 08/12/18 07:19 08/12/18 07:19 *Q Meaningful Use (ADM) - VTE Risk Assess *Q Each Risk Factor Represents 1 Point: Age 41 - 59 years, Obesity ( BMI > 25 kg/m2 ) Total Score 1 Point Risk Factors: 2 Each Risk Factor Represents 2 Points: None Total Score 2 Point Risk Factors: 0 Each Risk Factor Represents 3 Points: None Total Score 3 Point Risk Factors: 0 Each Risk Factor Represents 5 Points: None Total Score 5 Point Risk Factors: 0 Venous Thromboembolism Risk Factor Score *Q: 2 Problem List Initiated/Reviewed/Updated: Yes Orders Last 24hrs: Active Orders 24 hr Category Date Time Status Patient Status Manage Transfer [TRANSFER] Routine ADT 08/12/18 08:36 Active RT Aerosol Therapy [RC] ASDIRECTED Care 08/12/18 07:51 Active Sodium Chloride 0.9% [Normal Saline] 1,000 ml Med 08/12/18 07:30 Active IV ASDIRECTED methylPREDNISolone Sod Succ [Solu-MEDROL] Med 08/12/18 08:43 Once 125 mg IVPUSH ONETIME ONE Resuscitation Status Routine Resus Stat 08/12/18 08:38 Ordered Medication Orders Sodium Chloride (Normal Saline) 1,000 mls @ 999 mls/hr IV ASDIRECTED LUC Last Admin: 08/12/18 07:30 Dose: 999 mls/hr Methylprednisolone Sodium Succinate (Solu-Medrol) 125 mg IVPUSH ONETIME ONE Stop: 08/12/18 08:44 Assessment/Plan Comment:: ASSESSMENT AND PLAN INFLUENZA A-improved in some ways with no significant fever now and resolution of myalgias. She has persistent poor appetite with weakness and cough. She has developed paroxysms of cough that lead her to become very short of breath and lightheaded with a few episodes of cough associated syncope. -IV fluids for hydration -Tessalon Perles and Robitussin-AC as needed for cough -IV Solu-Medrol, hopefully will decrease inflammation in airways to improve cough HYPERTENSION -Continue outpatient medications MAINTENANCE ISSUES -DVT prophylaxis; Lovenox 40 mg subcutaneous daily -GI prophylaxis; not indicated -Griffiths catheter; not indicated -Nutrition; regular diet -Nicotine dependence; not required CODE STATUS-FULL CODE ADMISSION STATUS-this patient will be admitted to observation status, expect no more than a one night hospital stay for evaluation and management of problems as outlined above. DISPOSITION-anticipate discharge to home after the hospital stay. PRIMARY CARE PROVIDER-Dr. Mulligan
[2018-08-12] MEDS ORDERED: Sodium Chloride 0.9% 10 ML Syringe FLUSH PRN (10:37)
[2018-08-12] MEDS ORDERED: Codeine/guaiFENesin 100mg-10 MG/5 ML Syrup 10 ML Cup PO PRN (10:37)
[2018-08-12] MEDS ORDERED: Albuterol 0.083% 2.5 MG/3 ML Neb Soln NEB PRN (10:37)
[2018-08-12] MEDS ORDERED: Ibuprofen 600 MG Tab PO PRN (10:37)
[2018-08-12] MEDS ORDERED: Ondansetron 4 MG/2 ML SDV IV PRN (10:37)
[2018-08-12] MEDS ORDERED: Benzonatate 100 MG Cap PO PRN (10:37)
[2018-08-12] MEDS: Albuterol/Ipratropium 3.0-0.5 MG/3 ML Neb Soln NEB SCH ×3 (11:13→20:39)
[2018-08-12] MEDS: Sodium Chloride 0.9% 1,000 ML IV SCH ×2 (11:21→18:00)
[2018-08-12] MEDS: Acetaminophen 325 MG Tab PO PRN ×2 (11:21→20:39)
[2018-08-12] MEDS: Losartan 50 MG Tab PO SCH (12:52)
[2018-08-12] MEDS: Pantoprazole 40 MG Tab.CR PO SCH (12:52)
[2018-08-12] MEDS: Metoprolol Succinate 50 MG Tab.ER PO SCH (12:52)
[2018-08-12] MEDS: Aspirin 81 MG Tab.EC PO SCH (12:52)
[2018-08-12] MEDS: methylPREDNISolone Sodium Succinate 40 MG/1 ML SDV IVPUSH SCH ×2 (12:53→17:53)
[2018-08-12] MEDS ORDERED: Enoxaparin 40 MG/0.4 ML Syringe SUBCUT SCH (21:00)
[2018-08-12] MEDS ORDERED: Montelukast 10 MG Tab PO SCH (21:00)
[2018-08-13] MEDS: methylPREDNISolone Sodium Succinate 40 MG/1 ML SDV IVPUSH SCH ×2 (00:28→06:42)
[2018-08-13] MEDS ORDERED: Levothyroxine 50 MCG Tab PO SCH (07:30)
[2018-08-13] MEDS: Albuterol/Ipratropium 3.0-0.5 MG/3 ML Neb Soln NEB SCH ×2 (07:42→10:58)
[2018-08-13 07:47] VITALS: BP 123/69
[2018-08-13] MEDS: Pantoprazole 40 MG Tab.CR PO SCH (08:04)
[2018-08-13] MEDS: Losartan 50 MG Tab PO SCH (08:05)
[2018-08-13] MEDS: Aspirin 81 MG Tab.EC PO SCH (08:05)
[2018-08-13] MEDS: Metoprolol Succinate 50 MG Tab.ER PO SCH (08:06)
[2018-08-13] MEDS: Acetaminophen 325 MG Tab PO PRN (08:14)
--- NOTE | 2018-08-13 10:49 | PCM.DCSUM1 ---
Discharge Summary - Hospital Course Brief History: 57-year-old female with several days of myalgia, fever and cough who presented with cough and near syncope. She was admitted for management of influenza A and dehydration. Diagnosis: Stroke: No - Discharge Data Discharge Date: 08/13/18 Discharge Disposition: Home, Self-Care 01 Condition: Good - Discharge Diagnosis/Problem(s) (1) Dehydration SNOMED Code(s): 84334576 ICD Code: E86.0 - DEHYDRATION Status: Acute (2) Near syncope SNOMED Code(s): 020817385 ICD Code: R55 - SYNCOPE AND COLLAPSE Status: Acute (3) Influenza A SNOMED Code(s): 076200605 ICD Code: J10.1 - FLU DUE TO OTH IDENT INFLUENZA VIRUS W OTH RESP MANIFEST Status: Acute - Patient Summary/Data Hospital Course: Rosalva presented to the emergency room with weakness dehydration and presyncopal symptoms associated with coughing episode. She was being treated as an outpatient for influenza A. Because of the near-syncope with coughing she was admitted for observation. Overnight there were no significant issues. She did receive some IV fluid hydration. She did not have any fevers. Coughing has been very minimal. She has not had any recurrence of her symptoms. She feels much better at this point and feels safe going home. She has not been hypoxic. She has been up and walking around the halls with no difficulty. She will receive a prescription for prednisone which she will use twice daily with meals for 5 doses. She will follow-up if symptoms do not continue to get better or if they get worse. - Patient Instructions Diet: Regular Diet as Tolerated Activity: As Tolerated Driving: May Drive Today Showering/Bathing: May Shower Other/Special Instructions: 1. You were in the hospital for management of influenza A complicated by dehydration. Your condition has been improving with hydration. I recommend that you take prednisone 20 mg twice daily with meals ( breakfast and supper) for 5 doses. Your next dose is due at suppertime tonight. You may use the Tessalon Perles and/or Robitussin with codeine to help if you have residual cough. You may return to work on Tuesday, August 16. 2. Continue your other home medications as previously prescribed. 3. Follow up with Dr. Mulligan at the end of the week if her symptoms do not continue to improve or if they get worse. 4. Seek medical attention if you have fever greater than 101, severe shortness of breath or sudden onset of chest pain. - Discharge Plan *PRESCRIPTION DRUG MONITORING PROGRAM REVIEWED*: Not Applicable *COPY OF PRESCRIPTION DRUG MONITORING REPORT IN PATIENT NA: Not Applicable Prescriptions/Med Rec: predniSONE [Prednisone] 20 mg PO BIDAC #5 tablet Home Medications: Home Meds Aspirin [Adult Low Dose Aspirin EC] 81 mg PO DAILY 01/24/14 [History] Montelukast Sodium 10 mg PO BEDTIME 01/24/14 [History] Losartan [Cozaar] 100 mg PO DAILY 03/27/16 [History] Metoprolol Succinate [Toprol XL] 50 mg PO DAILY 06/15/16 [History] Acetaminophen [Tylenol] 650 mg PO Q4H tablet 08/27/16 [Rx] Hydrochlorothiazide 25 mg PO DAILY tablet 08/27/16 [Rx] Ibuprofen [Motrin] 600 mg PO Q6H PRN #0 tablet 08/27/16 [Rx] Levothyroxine [Synthroid] 50 mcg PO ACBREAKFAST tablet 08/27/16 [Rx] Omeprazole 20 mg PO DAILY 12/01/17 [History] predniSONE [Prednisone] 20 mg PO BIDAC #5 tablet 08/13/18 [Rx] Oxygen Therapy Mode: Room Air Patient Handouts: Influenza, Adult, Prednisone tablets Referrals: Nigel Mulligan MD [Primary Care Provider] - (f/u as needed after the hospital stay ) - Discharge Summary/Plan Comment DC Time >30 min.: No - Patient Data Vitals - Most Recent: Last Vital Signs Temp 36.3 C 08/13/18 07:00 Pulse 60 08/13/18 08:06 Resp 18 08/13/18 07:00 BP 123/69 08/13/18 08:06 Pulse Ox 100 08/13/18 07:00 Weight - Most Recent: 68.04 kg I&O - Last 24 hours: Intake & Output 08/12/18 08/13/18 08/13/18 22:59 06:59 14:59 Intake Total 500 840 Balance 500 840 Med Orders - Current: Current Medications Acetaminophen (Tylenol) 650 mg PO Q4H PRN PRN Reason: Pain (Mild 1-3)/fever Last Admin: 08/13/18 08:14 Dose: 650 mg Albuterol (Proventil Neb Soln) 2.5 mg NEB Q4H PRN PRN Reason: Shortness Of Breath/wheezing Albuterol/Ipratropium (Duoneb 3.0-0.5 Mg/3 Ml) 3 ml NEB QIDRT [facility] Last Admin: 08/13/18 07:42 Dose: 3 ml Aspirin (Halfprin) 81 mg PO DAILY [facility] Last Admin: 08/13/18 08:05 Dose: 81 mg Benzonatate (Tessalon Perles) 200 mg PO TID PRN PRN Reason: Cough Enoxaparin Sodium (Lovenox) 40 mg SUBCUT DAILY@2100 [facility] Last Admin: 08/12/18 20:41 Dose: 40 mg Guaifenesin/Codeine Phosphate (Robitussin Ac) 10 ml PO Q4H PRN PRN Reason: Cough Ibuprofen (Motrin) 600 mg PO Q6H PRN PRN Reason: Pain/Fever Levothyroxine Sodium (Synthroid) 50 mcg PO ACBREAKFAST [facility] Last Admin: 08/13/18 08:04 Dose: 50 mcg Losartan Potassium (Cozaar) 100 mg PO DAILY [facility] Last Admin: 08/13/18 08:05 Dose: 100 mg Methylprednisolone Sodium Succinate (Solu-Medrol) 40 mg IVPUSH Q6H [facility] Last Admin: 08/13/18 06:42 Dose: 40 mg Metoprolol Succinate (Toprol Xl) 50 mg PO DAILY [facility] Last Admin: 08/13/18 08:06 Dose: 50 mg Montelukast Sodium (Singulair) 10 mg PO BEDTIME [facility] Last Admin: 08/12/18 20:41 Dose: 10 mg Ondansetron HCl (Zofran) 4 mg IV Q4H PRN PRN Reason: Nausea/Vomiting Pantoprazole Sodium (Protonix) 40 mg PO ACBREAKFAST [facility] Last Admin: 08/13/18 08:04 Dose: 40 mg Senna/Docusate Sodium (Senna Plus) 1 tab PO BID PRN PRN Reason: Constipation Sodium Chloride (Saline Flush) 10 ml FLUSH ASDIRECTED PRN PRN Reason: Keep Vein Open Discontinued Medications Albuterol (Proventil Neb Soln) 2.5 mg NEB ONETIME ONE Stop: 08/12/18 07:52 Last Admin: 08/12/18 07:58 Dose: 2.5 mg Benzonatate (Tessalon Perles) 200 mg PO ONETIME ONE Stop: 08/12/18 07:53 Last Admin: 08/12/18 07:58 Dose: 200 mg Bisacodyl (Dulcolax) 10 mg RECTAL ONETIME ONE Stop: 08/12/18 08:00 Last Admin: 08/12/18 08:10 Dose: 10 mg Sodium Chloride (Normal Saline) 1,000 mls @ 999 mls/hr IV ASDIRECTED [facility] Last Admin: 08/12/18 07:30 Dose: 999 mls/hr Sodium Chloride (Normal Saline) 1,000 mls @ 125 mls/hr IV ASDIRECTED [facility] Last Admin: 08/12/18 18:00 Dose: 125 mls/hr Methylprednisolone Sodium Succinate (Solu-Medrol) 125 mg IVPUSH ONETIME ONE Stop: 08/12/18 08:44 Last Admin: 08/12/18 09:27 Dose: 125 mg - Exam Quality Assessment: Denies: Supplemental Oxygen General: Reports: Alert, Oriented, Cooperative, No Acute Distress Lungs: Reports: Normal Respiratory Effort GI/Abdominal Exam: Soft, No Distention Extremities: No Pedal Edema Psy/Mental Status: Reports: Alert, Normal Affect
== END 2018-08-13 11:47 | disposition home or self-care (01) ==
LOC: JP.ED 06:23 → JP.MS 10:03
PROVIDERS: ADMIT Hospitalist; ATTEND Internal Medicine
DX: J10.1 Influenza due to other identified influenza virus with other respiratory manifestations (principal); R55 Syncope and collapse; I10 Essential (primary) hypertension; E03.9 Hypothyroidism, unspecified; F41.9 Anxiety disorder, unspecified; Z79.82 Long term (current) use of aspirin; Z79.899 Other long term (current) drug therapy; Z88.8 Allergy status to other drugs, medicaments and biological substances; Z91.09 Other allergy status, other than to drugs and biological substances
CPT/HCPCS: 36415; 36600; 71045; 80053; 82803; 85025; 94640; 96361; 96374; 99285; A9270; J1650; J2920; J2930; J7030; 96372; 96376; G0378; J7620-GY

== ENCOUNTER 2019-01-21 23:43 | Emergency (ER) | payer MEDICARE, MEDICAID ==
[2019-01-22] MEDS ORDERED: Ketorolac 30 MG/ML SDV IVPUSH ONE (00:16)
[2019-01-22] MEDS ORDERED: fentaNYL 100 MCG/2 ML SDV IVPUSH ONE (00:16)
--- NOTE | 2019-01-22 00:23 | EDM.PDOC ---
ED HPI GENERAL MEDICAL PROBLEM - General Chief Complaint: Chest Pain Stated Complaint: CHEST PAINS Time Seen by Provider: 01/22/19 00:00 Source of Information: Reports: Patient History Limitations: Reports: No Limitations - History of Present Illness INITIAL COMMENTS - FREE TEXT/NARRATIVE: 58-year-old female with no cardiac history, she does have a history of gastrointestinal problems including removal of bezoar within the last 2 years woke tonight with substernal chest pain radiating to her jaw that was very sharp in nature. She felt like she "couldn't breathe". No diaphoresis, no nausea or vomiting. She has not had pain like this in the past. She tried to wait it out over the course of the next hour, it wasn't going away so she came in. She arrived very anxious and very uncomfortable. Onset: Sudden Duration: Hour(s): (Started suddenly 2 hours ago) Location: Reports: Chest, Abdomen Associated Symptoms: Reports: Chest Pain, Malaise, Shortness of Breath (Hurts to breathe and she feels short of breath). Denies: Diaphoresis, Nausea/Vomiting Chest Pain Score (Numeric/FACES): 10 - Related Data Allergies Allergy/AdvReac Type Severity Reaction Status Date / Time metaxalone Allergy Cannot Verified 08/10/18 05:16 Remember ether AdvReac Nausea Verified 08/10/18 05:16 metronidazole AdvReac Tachycardia Verified 08/10/18 05:16 Home Meds: Home Meds Aspirin [Adult Low Dose Aspirin EC] 81 mg PO DAILY 01/24/14 [History] Montelukast Sodium 10 mg PO BEDTIME 01/24/14 [History] Losartan [Cozaar] 100 mg PO DAILY 03/27/16 [History] Metoprolol Succinate [Toprol XL] 50 mg PO DAILY 06/15/16 [History] Acetaminophen [Tylenol] 650 mg PO Q4H tablet 08/27/16 [Rx] Hydrochlorothiazide 25 mg PO DAILY tablet 08/27/16 [Rx] Ibuprofen [Motrin] 600 mg PO Q6H PRN #0 tablet 08/27/16 [Rx] Levothyroxine [Synthroid] 50 mcg PO ACBREAKFAST tablet 08/27/16 [Rx] Omeprazole 20 mg PO DAILY 12/01/17 [History] Past Medical History HEENT History: Reports: Impaired Vision Other HEENT History: wears reading glasses Cardiovascular History: Reports: Hypertension Gastrointestinal History: Reports: Bowel Obstruction, GERD, Hiatal Hernia Genitourinary History: Reports: UTI, Recurrent [employer] History: Reports: 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, Musculoskeletal History: Reports: Back Pain, Chronic Neurological History: Reports: None Psychiatric History: Reports: Anxiety Endocrine/Metabolic History: Reports: Hypothyroidism Dermatologic History: Reports: None - Infectious Disease History Infectious Disease History: Reports: Chicken Pox - Past Surgical History Head Surgeries/Procedures: Reports: None HEENT Surgical History: Reports: Other (See Below) Other HEENT Surgeries/Procedures: wisdom teeth GI Surgical History: Reports: Colonoscopy, EGD, Zeb Fundoplication Female Surgical History: Reports: Hysterectomy, Oophorectomy, Tubal Ligation Endocrine Surgical History: Reports: Thyroidectomy Other Endocrine Surgeries/Procedures: partial Neurological Surgical History: Reports: Spinal Fusion Musculoskeletal Surgical History: Reports: Carpal Tunnel Dermatological Surgical History: Reports: Other (See Below) Social & Family History - Family History Family Medical History: Noncontributory : Reports: None Musculoskeletal: Reports: None - Tobacco Use Smoking Status *Q: Never Smoker - Caffeine Use Caffeine Use: Reports: Coffee Other Caffeine Use: 2 cups coffee daily - Recreational Drug Use Recreational Drug Use: No ED ROS GENERAL - Review of Systems Review Of Systems: See Below Constitutional: Denies: Fever, Chills HEENT: Reports: Other (Jaw pain) Respiratory: Reports: Shortness of Breath Cardiovascular: Reports: Chest Pain GI/Abdominal: Reports: Abdominal Pain. Denies: Diarrhea, Nausea, Vomiting : Reports: No Symptoms Skin: Denies: Pallor, Diaphoresis Neurological: Reports: No Symptoms Psychiatric: Reports: Anxiety ED EXAM, GENERAL - Physical Exam Exam: See Below Exam Limited By: No Limitations General Appearance: Alert, Anxious, Mild Distress (Appears very uncomfortable) Eye Exam: Bilateral Eye: Normal Inspection Throat/Mouth: Normal Inspection Head: Atraumatic Respiratory/Chest: No Respiratory Distress, Lungs Clear Cardiovascular: Regular Rate, Rhythm GI/Abdominal: Soft, Tender (Patient is very tender to palpation in the epigastric area) Extremities: Normal Inspection, No Pedal Edema. No: Pedal Edema Neurological: Alert, Oriented Psychiatric: Anxious Skin Exam: Warm, Dry EKG INTERPRETATION Rhythm: NSR Course - Vital Signs Last Recorded V/S: Last Vital Signs Temp 97.4 F 01/21/19 23:51 Pulse 62 01/22/19 01:21 Resp 16 01/22/19 01:21 BP 134/88 01/22/19 01:21 Pulse Ox 96 01/22/19 01:21 - Orders/Labs/Meds Orders: Active Orders 24 hr Category Date Time Status EKG Documentation Completion [RC] ASDIRECTED Care 01/22/19 00:15 Active EKG 12 Lead [EK] Routine Ther 01/22/19 00:14 Ordered Labs: Laboratory Tests 01/22/19 01/22/19 01/22/19 Range/Units 00:14 00:14 02:10 WBC 5.2 (4.5-11.0) K/uL RBC 4.48 (3.30-5.50) M/uL Hgb 12.4 (12.0-15.0) g/dL Hct 38.3 (36.0-48.0) % MCV 86 (80-98) fL MCH 28 (27-31) pg MCHC 32 (32-36) % Plt Count 213 (150-400) K/uL Neut % (Auto) 47 (36-66) % Lymph % (Auto) 43 (24-44) % Long % (Auto) 7 H (2-6) % Eos % (Auto) 3 (2-4) % Baso % (Auto) 1 (0-1) % Sodium 142 (140-148) mmol/L Potassium 3.3 L (3.6-5.2) mmol/L Chloride 103 (100-108) mmol/L Carbon Dioxide 29 (21-32) mmol/L Anion Gap 13.3 (5.0-14.0) mmol/L BUN 16 (7-18) mg/dL Creatinine 1.0 (0.6-1.0) mg/dL Est Cr Clr Drug Dosing 45.14 mL/min Estimated GFR (MDRD) 57 L (>60) Glucose 121 H (74-106) mg/dL Calcium 8.6 (8.5-10.1) mg/dL Total Bilirubin 0.2 (0.2-1.0) mg/dL AST 27 (15-37) U/L ALT 31 (12-78) U/L Alkaline Phosphatase 86 (46-116) U/L Troponin I < 0.017 < 0.017 (0.000-0.056) ng/mL Total Protein 6.8 (6.4-8.2) g/dL Albumin 3.4 (3.4-5.0) g/dL Globulin 3.4 (2.3-3.5) g/dL Albumin/Globulin Ratio 1.0 L (1.2-2.2) Meds: Medications Discontinued Medications Generic Name Dose Route Start Last Admin Trade Name Rick PRN Reason Stop Dose Admin Fentanyl 50 mcg 01/22/19 00:16 Sublimaze IVPUSH 01/22/19 00:17 ONETIME ONE Sodium Chloride 1,000 mls @ 1,000 mls/hr 01/22/19 01:15 01/22/19 01:20 Normal Saline IV 1,000 mls/hr ASDIRECTED LUC Administration Sodium Chloride 75 mls @ 0 mls/hr 01/22/19 01:45 01/22/19 01:49 Normal Saline IV 3.4 mls/hr ASDIRECTED LUC Administration KVO Iopamidol 114 ml 01/22/19 01:45 01/22/19 01:49 Isovue-300 (61%) IV 114 ml . DIRECTED LUC Administration Ketorolac Tromethamine 30 mg 01/22/19 00:16 01/22/19 00:21 Toradol IVPUSH 01/22/19 00:17 30 mg ONETIME ONE Administration Sodium Chloride 10 ml 01/22/19 01:32 01/22/19 01:49 Saline Flush FLUSH 01/22/19 01:33 10 ml ONETIME ONE Administration - Re-Assessments/Exams Free Text/Narrative Re-Assessment/Exam: 01/22/19 00:23 An EKG was done which showed normal sinus rhythm. An IV was started, patient was given 30 mg of Toradol and a CBC, CMP, troponin were obtained as well as a 1 view chest x-ray. Initial impression is this is more of a GI source of pain and aspirin will be held for now. Fentanyl IV was also offered for pain control but the patient refused citing side effects in the past. 01/22/19 02:44 CBC CMP and troponin were initially negative. CT scan of the abdomen and pelvis with IV contrast was also negative. Symptoms slowly improved. Repeat troponin 3 hours after arrival was still negative. Recommended following up with Dr. Laughlin to discuss an EGD. Departure - Departure Time of Disposition: 02:46 Disposition: Home, Self-Care 01 Clinical Impression: Atypical chest pain - Discharge Information Instructions: Nonspecific Chest Pain Referrals: PCP,None [Primary Care Provider] - Forms: ED Department Discharge Care Plan Goals: Consider a daily dose of omeprazole or Prevacid, and set up an appointment to follow up with Dr. Laughlin to discuss an EGD. Return to the emergency room if worsening or concerns. - My Orders Last 24 Hours: My Active Orders 01/22/19 00:14 EKG 12 Lead [EK] Routine 01/22/19 00:15 EKG Documentation Completion [RC] ASDIRECTED - Assessment/Plan Last 24 Hours: My Active Orders 01/22/19 00:14 EKG 12 Lead [EK] Routine 01/22/19 00:15 EKG Documentation Completion [RC] ASDIRECTED
--- NOTE | 2019-01-22 00:56 | CRLCR ---
INDICATION: Chest pain TECHNIQUE: Chest 1 views COMPARISON: Chest x-ray 08/12/2018 FINDINGS: Cardiovascular and mediastinum: Heart size and vasculature are normal in caliber and appearance. Lungs and pleural spaces: Lungs are clear. No sign of infiltrate or mass. No sign of pleural effusion. No pneumothorax. Bones and soft tissues: Right upper quadrant surgical clips. IMPRESSION: No acute findings and no significant changes from the prior exam. Dictated by Arnulfo Guy MD @ Jan 22 2019 12:54AM Signed by Dr. Arnulfo Guy @ Jan 22 2019 12:55AM
[2019-01-22] MEDS ORDERED: Sodium Chloride 0.9% 1,000 ML IV SCH (01:15)
[2019-01-22 01:22] VITALS: BP 134/88; PULSE 62
[2019-01-22] MEDS ORDERED: Sodium Chloride 0.9% 10 ML Syringe FLUSH ONE (01:32)
[2019-01-22] MEDS ORDERED: Iopamidol 612 MG/ML 150 ML Bottle IV SCH (01:45)
[2019-01-22] MEDS ORDERED: Sodium Chloride 0.9% 75 ML IV SCH (01:45)
--- NOTE | 2019-01-22 02:15 | CRLCT ---
INDICATION: Upper abdominal pain TECHNIQUE: CT abdomen and pelvis acquired with 114 cc Isovue-300 intravenous contrast. COMPARISON: Abdomen and pelvis CT 12/03/2017 FINDINGS: Lower chest: Unremarkable. Liver: Mildly decreased density of the liver consistent with fatty infiltration. Right lobe hemangioma measuring 3.6 centimeters re- demonstrated. Gallbladder and bile ducts: Status post cholecystectomy. Pancreas: Unremarkable. No mass or inflammation. Spleen: Unremarkable. Normal in size. No masses. Adrenal glands: Unremarkable. No nodules. Kidneys: Unremarkable. No masses, stones, or hydronephrosis. GI tract: Status post gastroesophageal fundoplication. Stomach otherwise unremarkable. No dilated loops of large or small intestine. Unremarkable appendix. Faint haziness within the left upper quadrant mesentery is unchanged. Vasculature: Unremarkable. Pelvis: Bladder unremarkable. Status post hysterectomy. 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 This is similar to the prior exam. IMPRESSION: 1. No acute findings to explain the patient`s abdominal pain. 2. Fatty infiltration of the liver with hepatic hemangioma re- demonstrated. 3. Status post gastroesophageal fundoplication. 4. Other incidental findings as noted above. Please note that all CT scans at this facility use dose modulation, iterative reconstruction, and/or weight-based dosing when appropriate to reduce radiation dose to as low as reasonably achievable. Dictated by Arnulfo Guy MD @ Jan 22 2019 2:07AM Signed by Dr. Arnulfo Guy @ Jan 22 2019 2:13AM
== END 2019-01-22 02:54 | disposition home or self-care (01) ==
LOC: JP.ED 23:43
DX: R07.89 Other chest pain (principal); I10 Essential (primary) hypertension; K21.9 Gastro-esophageal reflux disease without esophagitis; F41.9 Anxiety disorder, unspecified; E03.9 Hypothyroidism, unspecified; Z79.899 Other long term (current) drug therapy; Z79.82 Long term (current) use of aspirin; Z88.8 Allergy status to other drugs, medicaments and biological substances
CPT/HCPCS: 36415; 71045; 74177; 80053; 84484; 85025; 93005; 96361; 96374; 99285; J1885; J7030; 93010; 99284

== ENCOUNTER 2019-06-13 15:29 | Emergency (ER) | payer MEDICARE, MEDICAID ==
--- NOTE | 2019-06-13 17:26 | EDM.PDOC ---
ED HPI GENERAL MEDICAL PROBLEM - General Chief Complaint: Abdominal Pain Stated Complaint: ABDOMINAL PAIN Time Seen by Provider: 06/13/19 17:24 Source of Information: Reports: Patient History Limitations: Reports: No Limitations - History of Present Illness INITIAL COMMENTS - FREE TEXT/NARRATIVE: pt had [place] dinner and no she feels like there is a big bolus of food that is not moving throuigh. She has not had a bm for 4 days. She does not feel like she has stool down in the rectum causing pressure. Onset: Other ( This got real bad after she ate [place] dinner. ) Duration: Hour(s): Location: Reports: Abdomen Epigastric Pain Score (Numeric/FACES): 6 - Related Data Allergies Allergy/AdvReac Type Severity Reaction Status Date / Time metaxalone Allergy Cannot Verified 06/13/19 16:10 Remember ether AdvReac Nausea Verified 06/13/19 16:10 metronidazole AdvReac Tachycardia Verified 06/13/19 16:10 Home Meds: Home Meds Aspirin [Adult Low Dose Aspirin EC] 81 mg PO DAILY 01/24/14 [History] Montelukast Sodium 10 mg PO BEDTIME 01/24/14 [History] Losartan [Cozaar] 100 mg PO DAILY 03/27/16 [History] Metoprolol Succinate [Toprol XL] 50 mg PO DAILY 06/15/16 [History] Acetaminophen [Tylenol] 650 mg PO Q4H tablet 08/27/16 [Rx] Hydrochlorothiazide 25 mg PO DAILY tablet 08/27/16 [Rx] Ibuprofen [Motrin] 600 mg PO Q6H PRN #0 tablet 08/27/16 [Rx] Levothyroxine [Synthroid] 50 mcg PO ACBREAKFAST tablet 08/27/16 [Rx] Omeprazole 20 mg PO DAILY 12/01/17 [History] Acetaminophen with Codeine [Tylenol with Codeine #3 Tablet] 1 each PO Q6H PRN [History] Fluticasone Propionate [Flonase] 1 spray INH DAILY 04/18/19 [History] Azithromycin 125 mg PO DAILY 06/13/19 [History] Past Medical History HEENT History: Reports: Impaired Vision Other HEENT History: wears reading glasses Cardiovascular History: Reports: Hypertension Gastrointestinal History: Reports: Bowel Obstruction, GERD, Hiatal Hernia Genitourinary History: Reports: UTI, Recurrent [employer] History: Reports: 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, Musculoskeletal History: Reports: Back Pain, Chronic Neurological History: Reports: None Psychiatric History: Reports: Anxiety Endocrine/Metabolic History: Reports: Hypothyroidism Dermatologic History: Reports: None - Infectious Disease History Infectious Disease History: Reports: Chicken Pox - Past Surgical History HEENT Surgical History: Reports: Other (See Below) Other HEENT Surgeries/Procedures: wisdom teeth GI Surgical History: Reports: Colonoscopy, EGD, Zeb Fundoplication Female Surgical History: Reports: Hysterectomy, Oophorectomy, Tubal Ligation Endocrine Surgical History: Reports: Thyroidectomy Other Endocrine Surgeries/Procedures: partial Neurological Surgical History: Reports: Spinal Fusion Musculoskeletal Surgical History: Reports: Carpal Tunnel Social & Family History - Family History Family Medical History: Noncontributory : Reports: None Musculoskeletal: Reports: None - Tobacco Use Smoking Status *Q: Never Smoker - Caffeine Use Caffeine Use: Reports: Coffee Other Caffeine Use: 2 cups coffee daily - Recreational Drug Use Recreational Drug Use: No ED ROS GENERAL - Review of Systems Review Of Systems: See Below Constitutional: Reports: No Symptoms HEENT: Reports: No Symptoms Respiratory: Reports: No Symptoms Cardiovascular: Reports: No Symptoms Endocrine: Reports: No Symptoms GI/Abdominal: Reports: Abdominal Pain, Constipation, Other (pt feels like food is not moving tyhrough. ) : Reports: No Symptoms Musculoskeletal: Reports: No Symptoms Skin: Reports: No Symptoms Neurological: Reports: No Symptoms ED EXAM, GI/ABD - Physical Exam Exam: See Below Text/Narrative:: pt arrived with pauin in the epigastric area which is presently getting better. She has not had a bm fo about 3 days. She is not vomiting. This all started after eating [place] dinner. Exam Limited By: No Limitations General Appearance: Alert, Anxious, Mild Distress Ears: Normal TMs Nose: Normal Inspection Throat/Mouth: Normal Inspection Head: Atraumatic Neck: Normal Inspection Respiratory/Chest: No Respiratory Distress Cardiovascular: Regular Rate, Rhythm GI/Abdominal Exam: Other (mild upper abdomanal tenderness) (Female) Exam: Deferred Rectal (Female) Exam: Deferred Back Exam: Normal Inspection Extremities: Normal Inspection Course - Vital Signs Last Recorded V/S: Last Vital Signs Temp 36.5 C 06/13/19 16:09 Pulse 75 06/13/19 17:52 Resp 16 06/13/19 16:09 BP 136/90 06/13/19 17:52 Pulse Ox 97 06/13/19 16:09 - Orders/Labs/Meds Labs: Laboratory Tests 06/13/19 06/13/19 06/13/19 Range/Units 17:32 17:32 17:32 WBC 5.9 (4.5-11.0) K/uL RBC 4.52 (3.30-5.50) M/uL Hgb 12.2 (12.0-15.0) g/dL Hct 38.6 (36.0-48.0) % MCV 85 (80-98) fL MCH 27 (27-31) pg MCHC 32 (32-36) % Plt Count 229 (150-400) K/uL Neut % (Auto) 49 (36-66) % Lymph % (Auto) 41 (24-44) % [place] % (Auto) 8 H (2-6) % Eos % (Auto) 2 (2-4) % Baso % (Auto) 1 (0-1) % Sodium 139 L (140-148) mmol/L Potassium 3.5 L (3.6-5.2) mmol/L Chloride 101 (100-108) mmol/L Carbon Dioxide 30 (21-32) mmol/L Anion Gap 11.5 (5.0-14.0) mmol/L BUN 19 H (7-18) mg/dL Creatinine 1.0 (0.6-1.0) mg/dL Est Cr Clr Drug Dosing 46.78 mL/min Estimated GFR (MDRD) 57 L (>60) Glucose 137 H (74-106) mg/dL Calcium 8.2 L (8.5-10.1) mg/dL Total Bilirubin 0.3 (0.2-1.0) mg/dL AST 19 (15-37) U/L ALT 21 (12-78) U/L Alkaline Phosphatase 92 (46-116) U/L C-Reactive Protein (0.0-0.3) mg/dL Total Protein 6.9 (6.4-8.2) g/dL Albumin 3.4 (3.4-5.0) g/dL Globulin 3.5 (2.3-3.5) g/dL Albumin/Globulin Ratio 1.0 L (1.2-2.2) Lipase 201 (73-393) U/L 06/13/19 Range/Units 17:32 WBC (4.5-11.0) K/uL RBC (3.30-5.50) M/uL Hgb (12.0-15.0) g/dL Hct (36.0-48.0) % MCV (80-98) fL MCH (27-31) pg MCHC (32-36) % Plt Count (150-400) K/uL Neut % (Auto) (36-66) % Lymph % (Auto) (24-44) % [place] % (Auto) (2-6) % Eos % (Auto) (2-4) % Baso % (Auto) (0-1) % Sodium (140-148) mmol/L Potassium (3.6-5.2) mmol/L Chloride (100-108) mmol/L Carbon Dioxide (21-32) mmol/L Anion Gap (5.0-14.0) mmol/L BUN (7-18) mg/dL Creatinine (0.6-1.0) mg/dL Est Cr Clr Drug Dosing mL/min Estimated GFR (MDRD) (>60) Glucose (74-106) mg/dL Calcium (8.5-10.1) mg/dL Total Bilirubin (0.2-1.0) mg/dL AST (15-37) U/L ALT (12-78) U/L Alkaline Phosphatase (46-116) U/L C-Reactive Protein 0.44 H (0.0-0.3) mg/dL Total Protein (6.4-8.2) g/dL Albumin (3.4-5.0) g/dL Globulin (2.3-3.5) g/dL Albumin/Globulin Ratio (1.2-2.2) Lipase (73-393) U/L - Re-Assessments/Exams Free Text/Narrative Re-Assessment/Exam: 06/13/19 18:23 pt was found to have normal lab work. She has a normal crp. She feels likre it is feeling some better. Her lab work looks good. She had a flat and upright of the abdoman which shows alot of stool in the colon and alot of food in the stomach. There is no sign of obstruction. 06/13/19 18:25 06/13/19 18:26 pt was given mag citrate 1 bottle and a ducolax supp to stimulate the bowel. Departure - Departure Time of Disposition: 18:29 Disposition: Home, Self-Care 01 Condition: Fair Clinical Impression: Constipation, Delayed gastric emptying - Discharge Information Referrals: PCP,None [Primary Care Provider] - Forms: ED Department Discharge Care Plan Goals: appt with [facility] or Dr Truman Justice to see if pt may need to be scoped to look at the gastric outlet. use prilosec daily, miralax 1 packet daily Sepsis Event Note - Evaluation Sepsis Screening Result: No Definite Risk - Focused Exam Vital Signs: Vital Signs Temp Pulse Resp BP Pulse Ox 06/13/19 17:52 75 136/90 06/13/19 16:09 36.5 C 86 16 146/95 H 97 06/13/19 15:47 36.5 C 86 16 146/95 H 97 Date Exam was Performed: 06/13/19 Time Exam was Performed: 18:19
[2019-06-13 17:53] VITALS: BP 136/90; PULSE 75
--- NOTE | 2019-06-13 17:59 | CRLCR ---
HISTORY: Patient reports that food does not feel like it is passing. TECHNIQUE: Flat and upright abdominal radiographs. Upper right chest radiograph. COMPARISON: No prior. FINDINGS: Cardiac size and pulmonary vasculature are within normal limits. There is no focal lung infiltrate or pulmonary edema. - There is no free intraperitoneal air. No small bowel obstruction. There is moderate stool within the colon. There is moderate food within the stomach. Surgical clips within the right upper quadrant may relate to a prior cholecystectomy. Prior lumbar fusion. IMPRESSION: 1. Moderate food within the stomach. 2. No small bowel obstruction. 3. Moderate stool in the colon. 4. No free air. Dictated by Kendall Canales MD @ 06/13/2019 5:56:32 PM Dictated by: Kendall Canales MD @ 06/13/2019 17:56:41 (Electronically Signed)
[2019-06-13] MEDS ORDERED: Magnesium Citrate Solution 296 ML Bottle PO ONE (18:19)
[2019-06-13] MEDS ORDERED: Bisacodyl 10 MG Supp RECTAL ONE (18:20)
== END 2019-06-13 19:08 | disposition home or self-care (01) ==
LOC: JP.ED 15:29
DX: K59.00 Constipation, unspecified (principal); K30 Functional dyspepsia; I10 Essential (primary) hypertension; K21.9 Gastro-esophageal reflux disease without esophagitis; F41.9 Anxiety disorder, unspecified; E03.9 Hypothyroidism, unspecified; Z88.8 Allergy status to other drugs, medicaments and biological substances; Z79.82 Long term (current) use of aspirin; Z79.899 Other long term (current) drug therapy
CPT/HCPCS: 36415; 74022; 80053; 83690; 85025; 86140; 99284; A9270; 99283

== ENCOUNTER 2020-04-10 01:42 | Emergency (ER) | payer MEDICARE, MEDICAID ==
[2020-04-10] MEDS ORDERED: LORazepam 0.5 MG Tab PO ONE (02:00)
--- NOTE | 2020-04-10 02:03 | EDM.PDOC ---
ED HPI GENERAL MEDICAL PROBLEM - General Chief Complaint: Chest Pain Stated Complaint: CHEST PAIN Time Seen by Provider: 04/10/20 02:01 Source of Information: Reports: Patient, RN Notes Reviewed History Limitations: Reports: No Limitations - History of Present Illness INITIAL COMMENTS - FREE TEXT/NARRATIVE: 59-year-old female presents emergency department a complaint of chest pain, she states that chest pain awoke her from sleep about 1/2-hour prior to presentation to the emergency department she states it was constant however it is now resolved she is chest pain-free no nausea no vomiting no diaphoresis no shortness of breath, she states her mom did have myocardial infarction in her age 40 however brothers or sisters have not had any heart troubles she has never had a stress test she has had atypical chest pain in the past Treatments [employer]ICER: Reports: NSAIDS chest pain/epigastric pain Pain Score (Numeric/FACES): 3 - Related Data Allergies Allergy/AdvReac Type Severity Reaction Status Date / Time metaxalone Allergy Cannot Verified 04/10/20 03:18 Remember ether AdvReac Nausea Verified 04/10/20 03:18 metronidazole AdvReac Tachycardia Verified 04/10/20 03:18 Home Meds: Home Meds Aspirin [Adult Low Dose Aspirin EC] 81 mg PO DAILY 01/24/14 [History] Montelukast Sodium 10 mg PO BEDTIME 01/24/14 [History] Losartan [Cozaar] 100 mg PO DAILY 03/27/16 [History] Metoprolol Succinate [Toprol XL] 50 mg PO DAILY 06/15/16 [History] Acetaminophen [Tylenol] 650 mg PO Q4H tablet 08/27/16 [Rx] Hydrochlorothiazide 25 mg PO DAILY tablet 08/27/16 [Rx] Ibuprofen [Motrin] 600 mg PO Q6H PRN #0 tablet 08/27/16 [Rx] Levothyroxine [Synthroid] 50 mcg PO ACBREAKFAST tablet 08/27/16 [Rx] Omeprazole 20 mg PO DAILY 12/01/17 [History] Azithromycin 125 mg PO DAILY 06/13/19 [History] Past Medical History HEENT History: Reports: Impaired Vision Other HEENT History: wears reading glasses Cardiovascular History: Reports: Hypertension Gastrointestinal History: Reports: Bowel Obstruction, GERD, Hiatal Hernia Genitourinary History: Reports: UTI, Recurrent [employer]HER History: Reports: 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, Musculoskeletal History: Reports: Back Pain, Chronic Psychiatric History: Reports: Anxiety Endocrine/Metabolic History: Reports: Hypothyroidism Dermatologic History: Reports: None - Infectious Disease History Infectious Disease History: Reports: Chicken Pox - Past Surgical History HEENT Surgical History: Reports: Other (See Below) Other HEENT Surgeries/Procedures: wisdom teeth GI Surgical History: Reports: Colonoscopy, EGD, Zeb Fundoplication Female Surgical History: Reports: Hysterectomy, Oophorectomy, Tubal Ligation Endocrine Surgical History: Reports: Thyroidectomy Other Endocrine Surgeries/Procedures: partial Neurological Surgical History: Reports: Spinal Fusion Musculoskeletal Surgical History: Reports: Carpal Tunnel Social & Family History - Family History Family Medical History: Noncontributory : Reports: None Musculoskeletal: Reports: None - Caffeine Use Caffeine Use: Reports: Coffee Other Caffeine Use: 2 cups coffee daily ED ROS GENERAL - Review of Systems Review Of Systems: See Below Constitutional: Reports: No Symptoms HEENT: Reports: No Symptoms Respiratory: Reports: No Symptoms Cardiovascular: Reports: Chest Pain GI/Abdominal: Reports: No Symptoms ED EXAM, GENERAL - Physical Exam Exam: See Below Exam Limited By: No Limitations General Appearance: Alert, WD/WN, No Apparent Distress Respiratory/Chest: No Respiratory Distress, Lungs Clear, Normal Breath Sounds, No Accessory Muscle Use, Chest Non-Tender Cardiovascular: Regular Rate, Rhythm, No Murmur GI/Abdominal: Soft, Non-Tender Course - Vital Signs Last Recorded V/S: Last Vital Signs Temp 96.8 F L 04/10/20 01:56 Pulse 65 04/10/20 02:22 Resp 12 04/10/20 02:22 BP 170/91 H 04/10/20 02:22 Pulse Ox 97 04/10/20 02:22 - Orders/Labs/Meds Orders: Active Orders 24 hr Category Date Time Status Cardiac Monitoring [RC] .As Directed Care 04/10/20 01:59 Active EKG Documentation Completion [RC] ASDIRECTED Care 04/10/20 02:00 Active Chest 1V Frontal [CR] Stat Exams 04/10/20 02:00 Taken EKG 12 Lead [EK] Stat Ther 04/10/20 02:00 Ordered Labs: Laboratory Tests 04/10/20 04/10/20 04/10/20 Range/Units 01:25 01:25 04:33 WBC 6.0 (4.5-11.0) K/uL RBC 4.66 (3.30-5.50) M/uL Hgb 13.0 (12.0-15.0) g/dL Hct 39.7 (36.0-48.0) % MCV 85 (80-98) fL MCH 28 (27-31) pg MCHC 33 (32-36) % Plt Count 226 (150-400) K/uL Neut % (Auto) 32 L (36-66) % Lymph % (Auto) 57 H (24-44) % [place] % (Auto) 7 H (2-6) % Eos % (Auto) 3 (2-4) % Baso % (Auto) 1 (0-1) % Sodium 141 (140-148) mmol/L Potassium 3.2 L (3.6-5.2) mmol/L Chloride 102 (100-108) mmol/L Carbon Dioxide 28 (21-32) mmol/L Anion Gap 14.2 H (5.0-14.0) mmol/L BUN 18 (7-18) mg/dL Creatinine 1.0 (0.6-1.0) mg/dL Est Cr Clr Drug Dosing 44.58 mL/min Estimated GFR (MDRD) 56 L (>60) Glucose 100 (74-106) mg/dL Calcium 8.5 (8.5-10.1) mg/dL Total Bilirubin 0.2 (0.2-1.0) mg/dL AST 26 (15-37) U/L ALT 23 (12-78) U/L Alkaline Phosphatase 99 (46-116) U/L Troponin I < 0.017 < 0.017 (0.000-0.056) ng/mL Total Protein 7.2 (6.4-8.2) g/dL Albumin 3.6 (3.4-5.0) g/dL Globulin 3.6 H (2.3-3.5) g/dL Albumin/Globulin Ratio 1.0 L (1.2-2.2) Meds: Medications Discontinued Medications Generic Name Dose Route Start Last Admin Trade Name Freq PRN Reason Stop Dose Admin Al Hydroxide/Mg Hydroxide 15 0 ml 04/10/20 02:42 04/10/20 03:20 ml/ Lidocaine HCl 15 ml PO 04/10/20 02:43 30 ml ONETIME ONE Administration Lorazepam 0.5 mg 04/10/20 02:00 04/10/20 03:20 Ativan PO 04/10/20 02:01 Not Given ONETIME ONE Departure - Departure Time of Disposition: 05:52 Disposition: Home, Self-Care 01 Condition: Fair Clinical Impression: Atypical chest pain Instructions: Nonspecific Chest Pain, Adult Referrals: PCP,None [Primary Care Provider] - Forms: ED Department Discharge Additional Instructions: Continue with your regular medications, keep your appointment with gastroenterology, please followup with your primary care provider in 3-5 days if not better, please call return to the emergency department with worsening of symptoms. Sepsis Event Note (ED) - Evaluation Sepsis Screening Result: No Definite Risk - Focused Exam Vital Signs: Vital Signs Temp Pulse Resp BP Pulse Ox 04/10/20 02:22 65 12 170/91 H 97 04/10/20 02:07 63 17 167/91 H 97 04/10/20 01:56 96.8 F L 66 16 187/105 H 99 04/10/20 01:46 96.8 F L 66 16 187/105 H 99 - My Orders Last 24 Hours: My Active Orders 04/10/20 01:59 Cardiac Monitoring [RC] .As Directed 04/10/20 02:00 EKG Documentation Completion [RC] ASDIRECTED Chest 1V Frontal [CR] Stat EKG 12 Lead [EK] Stat - Assessment/Plan Last 24 Hours: My Active Orders 04/10/20 01:59 Cardiac Monitoring [RC] .As Directed 04/10/20 02:00 EKG Documentation Completion [RC] ASDIRECTED Chest 1V Frontal [CR] Stat EKG 12 Lead [EK] Stat Plan: Assessment Acuity = acute Site and laterality = atypical chest pain Etiology = probable underlying gastroesophageal reflux disease Manifestations = none Location of injury = Home Lab values = CBC, CMP unremarkable except for potassium low at 3.2 consistent with hypokalemia troponin is negative x2, EKG demonstrates sinus rhythm there is no ST elevations or depressions, chest x-ray I did review films myself I cannot appreciate any acute process, the official read from radiology is pending Plan She had good relief with the GI cocktail provided troponin was negative x2 she does have follow-up appointment with gastroenterology in the next couple of weeks otherwise follow-up with primary care 3 to 5 days if not better This note was dictated using [employer] voice recognition software please call with any questions on syntax or grammar.
[2020-04-10 02:28] VITALS: BP 170/91; PULSE 65
[2020-04-10] MEDS ORDERED: Alum Hydrox/Mag Hydrox/Simeth 15 ML, Lidocaine 2% 15 ML PO ONE ×2 (02:42)
--- NOTE | 2020-04-10 09:15 | CR ---
CHEST: Portable 04/10/2020 at 2:27 AM CLINICAL HISTORY:Chest pain COMPARISON:2019 FINDINGS: The heart size, pulmonary vascularity and hilar structures are normal. No infiltrate effusion or pneumothorax is seen. IMPRESSION: No acute cardiopulmonary process.
== END 2020-04-10 06:16 | disposition home or self-care (01) ==
LOC: JP.ED 01:42
DX: R07.89 Other chest pain (principal); I10 Essential (primary) hypertension; K21.9 Gastro-esophageal reflux disease without esophagitis; E03.9 Hypothyroidism, unspecified; Z88.1 Allergy status to other antibiotic agents; Z88.8 Allergy status to other drugs, medicaments and biological substances; Z79.82 Long term (current) use of aspirin; Z79.899 Other long term (current) drug therapy
CPT/HCPCS: 36415; 71045; 80053; 84484; 85025; 93005; 99285; A9270; 93010; 99283

== ENCOUNTER 2021-07-19 09:37 | Emergency (ER) | payer MEDICARE, MEDICAID ==
[2021-07-19] MEDS ORDERED: Magnesium Citrate Solution 296 ML Bottle PO ONE (10:28)
[2021-07-19 10:55] LABS: CORONAVIRUS COVID-19 NAA NEGATIVE (NEGATIVE)
[2021-07-19] MEDS ORDERED: LORazepam 0.5 MG Tab PO ONE (11:30)
[2021-07-19] MEDS ORDERED: Sodium Chloride 0.9% 1,000 ML IV SCH (12:00)
[2021-07-19] MEDS ORDERED: Iopamidol 612 MG/ML 100 ML Bottle IV PRN (12:31)
[2021-07-19] MEDS ORDERED: Sodium Chloride 0.9% 100 ML IV SCH (12:45)
[2021-07-19 15:39] VITALS: BP 151/88; PULSE 61
== END 2021-07-19 15:15 | disposition home or self-care (01) ==
LOC: JP.ED 09:37
DX: J32.9 Chronic sinusitis, unspecified (principal); K59.00 Constipation, unspecified; I10 Essential (primary) hypertension; E03.9 Hypothyroidism, unspecified; K21.9 Gastro-esophageal reflux disease without esophagitis; Z88.8 Allergy status to other drugs, medicaments and biological substances; Z79.82 Long term (current) use of aspirin; Z79.899 Other long term (current) drug therapy; Z87.891 Personal history of nicotine dependence; Z20.822 Contact with and (suspected) exposure to COVID-19
CPT/HCPCS: 0241U; 36415; 70210; 74019; 74177; 80053; 81001; 84443; 85025; 86140; 87081; 87880; 99284; 99285; A9270; J7030; Q9967